=== PATIENT | female | born 1950 | race Caucasian/White ===

== ENCOUNTER 2017-07-09 16:25 | Inpatient (IN) | payer MEDICARE ==
[2017-07-09] VITALS (8 sets, daily range): BP systolic 119–151; BP diastolic 65–87; PULSE 81–103; RESP 16; TEMP 99; O2SAT 93–100
[~2017-07-09] VITALS: Ht 162.6 cm; Wt 48.7 kg
[2017-07-09] MEDS: FLUCONAZOLE 400 MG PREMIX BAG 200 ML IV SCH (00:22)
[2017-07-09] MEDS: PANTOPRAZOLE INJ 80 MG in SODIUM CHLORIDE 0.9% INJ 100 ML IV SCH (00:22)
[~2017-07-09 16:25] MED LIST: CLIN1CAP5 PO; DEXAMETHASONE SOD PHOS 4 MG/ML VIAL IV ONE; LIDOCAINE HCL 1% PF 5 ML AMPULE OTHER ONE; MIDAZOLAM HCL 2 MG/2 ML VIAL IV ONE; ONDANSETRON HCL 4 MG/2 ML VIAL IV PUSH ONE; PHENYLEPH/NS 1000 MCG/10 ML SYR IV ONE; PROPOFOL 200 MG/20 ML AMP IV ONE; ROCURONIUM INJ 50 MG/5 ML SYRINGE IV PUSH ONE; SODI1 PO; SUCCINYLCHOLINE CHLORIDE 100 MG/5 ML SYRINGE IV PUSH ONE; ULTR50TA; ceFAZolin INJ 1,000 MG VIAL IV ONE
[2017-07-09] MEDS ORDERED: ONDANSETRON HCL 4 MG/2 ML VIAL IVP ONE (16:45)
--- NOTE | 2017-07-09 16:48 | PD ---
HPI Chief Complaint: abdominal pain Time Seen by Provider: 16:41 Travel History International Travel<30 days: No Contact w/Intl Traveler<30days: No Traveled to known affect area: No History of Present Illness HPI The patient was seen and examined in the presence of the nurse. Patient complains of abdominal pain. Duration 2 hours. Pain is severe. Location is epigastrium. No alleviating factors. No exacerbating factors. She has history of lung cancer and has completed chemoradiation. She denies metastatic spread. Denies abdominal surgeries or abdominal problems. Denies alcohol abuse. PFSH Past Medical History Arthritis: Yes Cancer: Yes (SCC , BCC SKIN, MELANOMA) Cardiovascular Problems: No COPD: Yes Diabetes: No Endocrine: No Genitourinary: No Hepatitis: No Hiatal Hernia: No Immune Disorder: No Musculoskeletal: Yes (OA) Neurologic: No Psychiatric: No Reproductive: No Respiratory: No Immunizations Current: No Thyroid Disease: No Past Surgical History AICD: No Gynecologic Surgery: Yes (UTERINE ABLATION, ) Joint Replacement: Yes (LEFT HIP right hip) Oral Surgery: Yes (TONSILLECTOMY) Pacemaker: No Thoracic Surgery: Yes (BREAST BX RIGHT) Social History Alcohol Use: No Tobacco Use: No Substance Use: No Allergies-Medications (Allergen,Severity, Reaction): Coded Allergies: penicillin G (Unverified Allergy, Severe, SWELLING, HIVES, 07/09/17) bacitracin (Verified Allergy, Intermediate, rash, 07/09/17) polymyxin B (Verified Allergy, Intermediate, rash, 07/09/17) Reported Meds & Prescriptions Reported Meds & Active Scripts Active Reported Clindamycin Hcl (Clindamycin HCl) 150 Mg Cap 150 Mg PO ONCE Sodium Chloride 1000 Mg Tab (Sodium Chloride) 1 Gm Tab 1 Gm PO DAILY Ultram (Tramadol HCl) 50 Mg Tab 50 Mg .ROUTE Q4H PRN Review of Systems General / Constitutional: No: Fever Eyes: No: Visual changes HENT: No: Headaches Cardiovascular: No: Chest Pain or Discomfort Respiratory: No: Shortness of Breath Gastrointestinal: Positive: Nausea, Abdominal Pain Genitourinary: No: Dysuria Musculoskeletal: No: Pain Skin: No Rash Neurologic: No: Weakness Psychiatric: No: Depression Endocrine: No: Polydipsia Hematologic/Lymphatic: No: Easy Bruising Physical Exam Narrative GENERAL: Well-nourished, well-developed patient with epigastric pain . SKIN: Focused skin assessment reveals no rash and nodules. Skin is Warm and dry. HEAD: Atraumatic. Normocephalic. EYES: Pupils equal and round. No scleral icterus. No injection or drainage. ENT: No nasal bleeding or discharge. Mucous membranes pink and moist. NECK: Trachea midline. No JVD. CARDIOVASCULAR: Regular rate and rhythm. No murmur appreciated. RESPIRATORY: No accessory muscle use. Clear to auscultation. Breath sounds equal bilaterally. GASTROINTESTINAL: Abdomen soft, epigastrium is tender without rebound or guarding, nondistended. Hepatic and splenic margins not palpable. MUSCULOSKELETAL: No obvious deformities. No clubbing. No cyanosis. No edema. NEUROLOGICAL: Awake and alert. No obvious cranial nerve deficits. Motor grossly within normal limits. Normal speech. PSYCHIATRIC: Appropriate mood and affect; insight and judgment normal. Data Data Last Documented VS Vital Signs Date Time Temp Pulse Resp B/P (MAP) Pulse Ox O2 Delivery O2 Flow Rate FiO2 07/09/17 18:30 103 16 121/72 (88) 93 Room Air 07/09/17 16:52 99.0 Orders Orders Complete Blood Count With Diff (07/09/17 16:44) Comprehensive Metabolic Panel (07/09/17 16:44) Lipase (07/09/17 16:44) Prothrombin Time / Inr (Pt) (07/09/17 16:44) Act Partial Throm Time (Ptt) (07/09/17 16:44) Ct Abd/Pel W Iv Contrast(Rout) (07/09/17 16:44) Iv Access Insert/Monitor (07/09/17 16:44) NPO (07/09/17 16:44) Ondansetron Inj (Zofran Inj) (07/09/17 16:45) Sodium Chloride 0.9% Flush (Ns Flush) (07/09/17 16:45) Iohexol 350 Inj (Omnipaque 350 Inj) (07/09/17 18:06) Metronidazole 500 Mg Inj (Flagyl 500 Mg (07/09/17 18:45) Levofloxacin 750 Mg Premix Inj (Levaquin (07/09/17 18:45) Sodium Chlor 0.9% 1000 Ml Inj (Ns 1000 M (07/09/17 18:45) Admit Order (Ed Use Only) (07/09/17 18:57) Labs Laboratory Tests Test 07/09/17 17:10 White Blood Count 12.1 TH/MM3 Red Blood Count 4.65 MIL/MM3 Hemoglobin 15.4 GM/DL Hematocrit 44.9 % Mean Corpuscular Volume 96.5 FL Mean Corpuscular Hemoglobin 33.0 PG Mean Corpuscular Hemoglobin Concent 34.2 % Red Cell Distribution Width 13.9 % Platelet Count 275 TH/MM3 Mean Platelet Volume 7.4 FL Neutrophils (%) (Auto) 90.2 % Lymphocytes (%) (Auto) 5.9 % Monocytes (%) (Auto) 2.1 % Eosinophils (%) (Auto) 0.2 % Basophils (%) (Auto) 1.6 % Neutrophils # (Auto) 10.9 TH/MM3 Lymphocytes # (Auto) 0.7 TH/MM3 Monocytes # (Auto) 0.3 TH/MM3 Eosinophils # (Auto) 0.0 TH/MM3 Basophils # (Auto) 0.2 TH/MM3 CBC Comment DIFF FINAL Differential Comment Prothrombin Time 11.5 SEC Prothromb Time International Ratio 1.0 RATIO Activated Partial Thromboplast Time 29.1 SEC Blood Urea Nitrogen 9 MG/DL Creatinine 0.48 MG/DL Random Glucose 93 MG/DL Total Protein 7.8 GM/DL Albumin 3.5 GM/DL Calcium Level 9.2 MG/DL Alkaline Phosphatase 196 U/L Aspartate Amino Transf (AST/SGOT) 150 U/L Alanine Aminotransferase (ALT/SGPT) 100 U/L Total Bilirubin 0.8 MG/DL Sodium Level 130 MEQ/L Potassium Level 3.9 MEQ/L Chloride Level 96 MEQ/L Carbon Dioxide Level 23.3 MEQ/L Anion Gap 11 MEQ/L Estimat Glomerular Filtration Rate 129 ML/MIN Lipase 129 U/L [facility] Medical Decision Making Medical Screen Exam Complete: Yes Emergency Medical Condition: Yes Medical Record Reviewed: Yes Differential Diagnosis Differential diagnosis includes pancreatitis, biliary colic, hepatitis, GERD, peptic ulcer disease. Narrative Course I have reviewed the patient's electronic medical record. IV placed CBC shows mild leukocytosis metabolic profile shows mild hyponatremia LFT's shows mild LFT elevation lipase is normal I gave her IV Zofran I offered but she refuses pain medication CT of abdomen and pelvis with IV contrast shows suspicion of perforated bowel. sHe has free intraperitoneal fluid and pneumoperitoneum. Also incidental finding of liver metastases noted Case reviewed in detail with general surgeon Patrick france and primary physician Dr. Novoa. She will be emergently sent to [facility] for exploratory laparotomy to evaluate for perforated bowel I gave her IV fluid normal saline 1 L and a dose of both Levaquin and Flagyl Critical Care Narrative Aggregate critical care time was 34 minutes. Time to perform other separately billable procedures was not included in the critical care time. My time did not include minutes spent treating any other patients simultaneously or on activities that did not directly contribute to the patient's treatment. The services I provided to this patient were to treat and/or prevent clinically significant deterioration that could result in: Cardiopulmonary arrest, necrotic bowel, sepsis I provided critical care services requiring my management, as noted below: Chart data review, documentation time, medication orders and management, vital sign assessments/reviewing monitor data, ordering and reviewing lab tests, ordering and interpreting/reviewing x-rays and diagnostic studies, care of the patient and discussion of the patient with the admitting physicians. Diagnosis Primary Impression: Bowel perforation Admitting Information Admitting Physician Requests: Admit Phillip Nicole MD Jul 09, 2017 16:48
[2017-07-09] MEDS: SODIUM CHLORIDE 0.9% FLUSH 10 ML FLUSH IV FLUSH PRN ×4 (17:16→19:50)
[2017-07-09 17:22] LABS: AUTOMATED NEUTROPHIL # 10.9 TH/MM3 (1.8-7.7); BASOPHIL # 0.2 TH/MM3 (0-0.2); BASOPHIL % 1.6 % (0.0-2.0); EOSINOPHIL % 0.2 % (0.0-4.0); HEMATOCRIT 44.9 % (35.0-46.0); LYMPH % 5.9 % (9.0-44.0); LYMPHOCYTE # 0.7 TH/MM3 (1.0-4.8); MEAN CELL VOLUME 96.5 FL (80.0-100.0); MEAN CORPUSCULAR HGB CONC 34.2 % (32.0-36.0); MONO % 2.1 % (0.0-8.0); NEUT % 90.2 % (16.0-70.0); PLATELET COUNT 275 TH/MM3 (150-450); RED BLOOD COUNT 4.65 MIL/MM3 (4.00-5.30); RED CELL DISTRIBUTION WIDTH 13.9 % (11.6-17.2); WHITE BLOOD COUNT 12.1 TH/MM3 (4.0-11.0)
[2017-07-09 17:30] LABS: CHLORIDE 96 MEQ/L (98-107); HEMO FLAGS DIFF FINAL; POTASSIUM 3.9 MEQ/L (3.5-5.1); SODIUM (NA) 130 MEQ/L (136-145)
[2017-07-09 17:34] LABS: ANION GAP 11 MEQ/L (5-15); APTT (PATIENT) 29.1 SEC (24.3-30.1); BICARBONATE 23.3 MEQ/L (21.0-32.0); BLOOD UREA NITROGEN 9 MG/DL (7-18); PROTHROMBIN TIME - PATIENT 11.5 SEC (9.8-11.6)
[2017-07-09 17:37] LABS: ALT (GPT) 100 U/L (10-53); AST (GOT) 150 U/L (15-37); GLOMERULAR FILTRATION RATE 129 ML/MIN (>89)
[2017-07-09 17:38] LABS: TOTAL BILIRUBIN ADULT 0.8 MG/DL (0.2-1.0)
[2017-07-09 17:40] LABS: ALKALINE PHOSPHATASE 196 U/L (45-117)
[2017-07-09] MEDS ORDERED: IOHEXOL 350 MG/ML 10 ML VIAL (for RAD DIAG) IVCONTRAST ONE (18:06)
--- NOTE | 2017-07-09 18:24 | RADRPT ---
EXAM DATE/TIME: 07/09/2017 18:01 [facility] COMPARISON: No previous studies available for comparison. INDICATIONS : Diffuse abdominal pain. IV CONTRAST: 95 cc Omnipaque 350 (iohexol) IV ORAL CONTRAST: No oral contrast ingested. RADIATION DOSE: 5.58 CTDIvol (mGy) MEDICAL HISTORY : Chronic obstructive pulmonary disease. Carcinoma, lung. SURGICAL HISTORY : Uterine ablation. Orthopedic surgery. ENCOUNTER: Initial ACUITY: 1 day PAIN SCALE: 7/10 LOCATION: Bilateral abdomen TECHNIQUE: Volumetric scanning of the abdomen and pelvis was performed. Using automated exposure control and ad justment of the mA and/or kV according to patient size, radiation dose was kept as low as reasonably achievable to obtain optimal diagnostic quality images. DICOM format image data is available electro nically for review and comparison. FINDINGS: LOWER LUNGS: Minimal atelectasis in the posterior lung bases. LIVER: Multiple peripherally enhancing low density liver lesions involving both lobes of the liver. Number g reater than 20. Largest several approach 2 cm in size and CT-guided biopsy does appear likely feasibl e SPLEEN: Normal size without lesion. PANCREAS: Within normal limits. KIDNEYS: Left renal cysts. No evidence of hydronephrosis. ADRENAL GLANDS: Within normal limits. VASCULAR: There is no aortic aneurysm. BOWEL/MESENTERY: There is pneumoperitoneum, mainly in the upper abdomen. Mild nonspecific distention of small bowel. F inding to suggest site of potential bowel perforation is not evident. Small volume of peritoneal flui d. ABDOMINAL WALL: Within normal limits. RETROPERITONEUM: There is no lymphadenopathy. BLADDER: No wall thickening or mass. REPRODUCTIVE: Atrophic uterus. Fluid in the endometrial cavity gonadal varices, particularly on the left INGUINAL: There is no lymphadenopathy or hernia. MUSCULOSKELETAL: Degenerative changes. Bilateral total hip arthroplasties. CONCLUSION: Pneumoperitoneum and free peritoneal fluid worrisome for bowel perforation. Multiple low density live r lesions consistent with metastatic disease. Galileo Macedo MD on July 09, 2017 at 18:14 Board Certified Radiologist. This report was verified electronically.
[2017-07-09] MEDS ORDERED: metroNIDAZOLE 500 MG INJ 100 ML IV ONE (18:45)
[2017-07-09] MEDS ORDERED: SODIUM CHLOR 0.9% 1000 ML INJ 1,000 ML IV ONE (18:45)
[2017-07-09] MEDS ORDERED: LEVOFLOXACIN 750 MG PREMIX INJ 150 ML IV ONE (18:45)
[2017-07-09] MEDS ORDERED: MORPHINE SULFATE 4 MG/ML INJ IV PUSH ONE (19:45)
[2017-07-09] MEDS ORDERED: NALOXONE HCL 0.4 MG/ML AMP IV PUSH PRN ×2 (20:00→23:00)
[2017-07-09] MEDS ORDERED: ONDANSETRON HCL 4 MG/2 ML VIAL IVP PRN (20:00)
[2017-07-09] MEDS ORDERED: SODIUM CHLORIDE 0.9% FLUSH 10 ML FLUSH IV FLUSH PRN (20:00)
[2017-07-09] MEDS ORDERED: SODIUM CHLORIDE 0.9% FLUSH 10 ML FLUSH IV FLUSH SCH (21:00)
[2017-07-09] MEDS ORDERED: MORPHINE SULFATE 8 MG/ML INJ ONE (21:17)
[2017-07-09] MEDS ORDERED: BUPIVACAINE/EPINEPHRINE 0.25% 50 ML VIAL ONE (21:28)
[2017-07-09] MEDS ORDERED: MORPHINE SULFATE 8 MG/ML INJ IV PUSH ONE (21:30)
[2017-07-09] MEDS ORDERED: POVIDONE IODINE 5% (ANTISEPSIS KIT) 4 APPLICATIONS EACH NARE PRN (21:45)
[2017-07-09] MEDS ORDERED: CHLORHEXIDINE GLUCONATE 2 % 1 PACK (2 CLOTHS) TOPICAL PRN (21:45)
[2017-07-09] MEDS ORDERED: INSULIN HUMAN REGULAR 1,000 UNITS/10 ML VIAL SQ PRN (21:45)
[2017-07-09] MEDS ORDERED: METOPROLOL TARTRATE 25 MG TAB PO PRN (21:45)
[2017-07-09] MEDS ORDERED: LACTATED RINGER'S 1000 ML IV PRN (21:45)
[2017-07-09] MEDS ORDERED: SODIUM CHLORID 0.9% 500 ML IV PRN (21:45)
[2017-07-09] MEDS: D5-NS + KCL 20 MEQ INJ 1,000 ML IV SCH (22:49)
[2017-07-09] MEDS ORDERED: ONDANSETRON HCL 4 MG/2 ML VIAL IV PUSH PRN (23:00)
[2017-07-09] MEDS ORDERED: PROPOFOL 1000 MG/100 ML INJ 100 ML ONE (23:00)
[2017-07-09] MEDS ORDERED: diphenhydrAMINE HCL 50 MG/ML VIAL IV PUSH PRN (23:00)
[2017-07-09] MEDS ORDERED: Post-op Orders (for Pharmacy) MISC XX ONE (23:00)
[2017-07-09] MEDS ORDERED: SODIUM CHLORIDE 0.9% FLUSH 5 ML FLUSH IVF PRN (23:00)
[2017-07-09] MEDS ORDERED: MORPHINE SULFATE 30 MG/30 ML PCA IV SCH (23:00)
[2017-07-09] MEDS ORDERED: DO NOT ADM ANY ANTICOAGULANT DRUGS PRN (23:15)
--- NOTE | 2017-07-09 23:23 | PD.CONS ---
HPI Service Critical Care Medicine Consult Requested By Primary Care Physician No Primary Care Physician History of Present Illness 66-year-old female with history of stage IV lung cancer, completed a treatment, presents with complains of abdominal pain. The pain started about 2 hours prior admission was severe and located in epigastrium. No alleviating factors. No exacerbating factors. She denies metastatic spread. Denies abdominal surgeries or abdominal problems. Denies alcohol abuse. CAT scan of the abdomen and pelvis performed in the emergency department significant for pneumoperitoneum, mainly in the upper abdomen. Mild nonspecific distention of small bowel. She was taken emergently to the operating room, and was treated with Edvin patch. Review of Systems ROS Unobtainable patient is sedated and intubated Past Family Social History Allergies: Coded Allergies: penicillin G (Unverified Allergy, Severe, SWELLING, HIVES, 07/09/17) bacitracin (Verified Allergy, Intermediate, rash, 07/09/17) polymyxin B (Verified Allergy, Intermediate, rash, 07/09/17) Past Medical History Arthritis: Yes Cancer: Yes (SCC , BCC SKIN, MELANOMA) COPD: Yes Musculoskeletal: Yes (OA) Past Surgical History Gynecologic Surgery: Yes (UTERINE ABLATION, ) Joint Replacement: Yes (LEFT HIP right hip) Oral Surgery: Yes (TONSILLECTOMY) Thoracic Surgery: Yes (BREAST BX RIGHT) Reported Medications Reported Meds & Active Scripts Active Reported Clindamycin Hcl (Clindamycin HCl) 150 Mg Cap 150 Mg PO ONCE Sodium Chloride 1000 Mg Tab (Sodium Chloride) 1 Gm Tab 1 Gm PO DAILY Ultram (Tramadol HCl) 50 Mg Tab 50 Mg .ROUTE Q4H PRN Active Ordered Medications Current Medications Medications (Trade) Dose Ordered Sig/Salvatore Route PRN Reason Start Time Stop Time Status Last Admin Dose Admin Potassium Chloride/Dextrose/ Sod Cl 1,000 ml @ 125 mls/hr Q8H IV 07/09/17 22:49 07/09/17 22:49 IV Flush (NS Flush) 2 ml UNSCH PRN IVF FLUSH AFTER USING IV ACCESS 07/09/17 23:00 IV Flush (NS Flush) 2 ml BID IVF 07/10/17 09:00 Ondansetron HCl (Zofran Inj) 4 mg Q4H PRN IV PUSH NAUSEA OR VOMITING 07/09/17 23:00 Metronidazole 100 ml @ 200 mls/hr Q8H IV 07/10/17 04:00 07/10/17 20:29 07/10/17 03:49 Naloxone HCl (Narcan Inj) 0.4 mg UNSCH PRN IV PUSH RESPIRATORY RATE LESS THAN 10 07/09/17 23:00 Diphenhydramine HCl (Benadryl Inj) 25 mg Q6H PRN IV PUSH ITCHING 07/09/17 23:00 Morphine Sulfate (Morphine 1 Mg/ ml [employer]IST) 30 mg UNSCH IV 07/09/17 23:00 [employer] Dosage Infused (Pha) 1 Q8HR .XX 07/10/17 06:00 Levofloxacin/ Dextrose 100 ml @ 100 mls/hr Q24H IV 07/10/17 18:00 Fluconazole/ Sodium Chloride 200 ml @ 100 mls/hr Q24H IV 07/09/17 23:00 07/09/17 00:22 Pantoprazole Sodium 80 mg/ Sodium Chloride 100 ml @ 10 mls/hr Q10H IV 07/09/17 23:00 07/09/17 00:22 Miscellaneous Information ALL NURSING DEPARTME... UNSCH PRN .XX SEE LABEL COMMENTS 07/09/17 23:15 07/10/17 23:14 Propofol 100 ml @ 1.53 mls/hr TITRATE PRN IV SEDATION 07/09/17 23:30 07/10/17 03:50 Fentanyl Citrate 250 ml @ 5 mls/hr TITRATE PRN IV SEDATION 07/09/17 23:45 07/10/17 00:30 Family History No family history significant for diabetes or coronary disease Social History Alcohol Use: No Tobacco Use: No Substance Use: No Physical Exam Vital Signs Vital Signs Date Time Temp Pulse Resp B/P (MAP) Pulse Ox O2 Delivery O2 Flow Rate FiO2 07/09/17 22:57 98 40 07/09/17 21:30 82 26 108/59 (75) 94 07/09/17 21:15 88 28 114/65 (81) 92 07/09/17 21:00 81 28 118/64 (82) 92 07/09/17 20:45 85 27 105/58 (74) 93 07/09/17 20:40 81 07/09/17 20:40 98.1 86 24 105/63 (77) 91 07/09/17 20:40 91 Nasal Cannula 3 07/09/17 19:54 88 16 123/65 (84) 94 07/09/17 19:00 94 16 151/74 (99) 93 Room Air 07/09/17 18:30 103 16 121/72 (88) 93 Room Air 07/09/17 17:30 100 16 119/81 (94) 93 Room Air 07/09/17 16:55 16 07/09/17 16:52 99.0 81 16 139/87 (104) 94 Physical Exam GENERAL: Well-nourished, well-developed patient. Sedated and intubated SKIN: Warm and dry. HEAD: Normocephalic. EYES: No scleral icterus. No injection or drainage. NECK: Supple, trachea midline. No JVD or lymphadenopathy. CARDIOVASCULAR: Regular rate and rhythm without murmurs, gallops, or rubs. RESPIRATORY: Breath sounds equal bilaterally. No accessory muscle use. GASTROINTESTINAL: Abdomen soft, non-tender, nondistended. MUSCULOSKELETAL: No cyanosis, or edema. BACK: Nontender without obvious deformity. NEURO EXAM: Mental Status: The patient is sedated and intubated Cranial Nerves: Pupils are round, reactive to light. Reflexes: Biceps, patellar, and Achilles are 2/4 bilaterally. No clonus. Laboratory Laboratory Tests Test 07/09/17 17:10 White Blood Count 12.1 Red Blood Count 4.65 Hemoglobin 15.4 Hematocrit 44.9 Mean Corpuscular Volume 96.5 Mean Corpuscular Hemoglobin 33.0 Mean Corpuscular Hemoglobin Concent 34.2 Red Cell Distribution Width 13.9 Platelet Count 275 Mean Platelet Volume 7.4 Neutrophils (%) (Auto) 90.2 Lymphocytes (%) (Auto) 5.9 Monocytes (%) (Auto) 2.1 Eosinophils (%) (Auto) 0.2 Basophils (%) (Auto) 1.6 Neutrophils # (Auto) 10.9 Lymphocytes # (Auto) 0.7 Monocytes # (Auto) 0.3 Eosinophils # (Auto) 0.0 Basophils # (Auto) 0.2 CBC Comment DIFF FINAL Differential Comment Prothrombin Time 11.5 Prothromb Time International Ratio 1.0 Activated Partial Thromboplast Time 29.1 Blood Urea Nitrogen 9 Creatinine 0.48 Random Glucose 93 Total Protein 7.8 Albumin 3.5 Calcium Level 9.2 Alkaline Phosphatase 196 Aspartate Amino Transf (AST/SGOT) 150 Alanine Aminotransferase (ALT/SGPT) 100 Total Bilirubin 0.8 Sodium Level 130 Potassium Level 3.9 Chloride Level 96 Carbon Dioxide Level 23.3 Anion Gap 11 Estimat Glomerular Filtration Rate 129 Lipase 129 Result Diagram: 07/09/17 1710 07/09/17 1710 Imaging Last 24 hours Impressions Chest X-Ray 07/10/17 0000 Signed Impressions: Service Date/Time: Monday, July 10, 2017 01:15 - CONCLUSION: Left basilar atelectasis.. Leon Burns MD Abdomen/Pelvis CT 07/09/17 1644 Signed Impressions: Service Date/Time: Sunday, July 09, 2017 18:01 - CONCLUSION: Pneumoperitoneum and free peritoneal fluid worrisome for bowel perforation. Multiple low density liver lesions consistent with metastatic disease. Galileo Macedo MD Assessment and Plan Assessment and Plan Respiratory failure - Postoperative - Difficult intubation per anesthesiology report, anterior airway - Attempt to wean - SBT a.m. Perforated viscus - Status post Edvin patch repair - Levaquin/Flagyl - Management per general surgery COPD - No exacerbation - No indication for steroids - DuoNeb scheduled and when necessary Stage IV lung cancer - Supportive care - Follow-up as an outpatient with gopherman and oncologist DVT GI prophylaxis - Teds SCDs - Pantoprazole - Pharmacological DVT prophylaxis per surgeon Critical Care: The total critical care time was 35 minutes. Time to perform other separately billable procedures was not included in the critical care time. Stanton Ferrell MD Jul 09, 2017 23:23
[2017-07-09] MEDS ORDERED: fentaNYL DRIP 250 ML IV PRN (23:45)
[2017-07-10] VITALS (17 sets, daily range): BP systolic 93–108; BP diastolic 51–61; PULSE 56–81; RESP 14–20; TEMP 97.7–98.9; O2SAT 92–100
[2017-07-10] MEDS: PROPOFOL 1000 MG/100 ML INJ 100 ML IV PRN ×2 (00:22→03:50)
[2017-07-10 00:44] LABS: BLOOD GAS BASE EXCESS -4.9 mmol/L (-2-2); BLOOD GAS CARBOXYHEMOGLOBIN 2.9 % (0-4); BLOOD GAS HCO3 20 mmol/L (22-26); BLOOD GAS METHEMOGLOBIN 1.1 % (0-2); BLOOD GAS O2 HGB SATURATION 94 % (90-100); BLOOD GAS OXYGEN CONTENT 18.2 Vol % (12.0-20.0); BLOOD GAS PCO2 39 mmHg (38-42); BLOOD GAS PO2 114 mmHg (61-120); BLOOD GAS TOTAL HGB 13.7 G/DL (12.0-16.0); CRITICAL VALUE NO; DRAW SITE LT BRACHIAL; FIO2 40 %; NUMBER OF ARTERIAL PUNCTURES 1; OXYGEN DEVICE VENTILATOR; STAT NO; TEMP CORR TO 98.6; VENT SETTINGS 16/450/IT1.0/5PEEP
--- NOTE | 2017-07-10 02:15 | RADRPT ---
EXAM DATE/TIME: 07/10/2017 01:15 [facility] COMPARISON: No previous studies available for comparison. INDICATIONS : Post intubation. MEDICAL HISTORY : Chronic obstructive pulmonary disease. Carcinoma, lung. SURGICAL HISTORY : None. ENCOUNTER: Initial ACUITY: 1 day PAIN SCORE: Non-responsive. LOCATION: Bilateral chest FINDINGS: A single view of the chest demonstrates left basal atelectasis. Right lung clear. Endotracheal tube 4 cm above the cait. Nasogastric tube tip in stomach. The cardiomediastinal contours are unremarkabl e. Osseous structures are intact. CONCLUSION: Left basilar atelectasis.. Leon Burns MD on July 10, 2017 at 2:13 Board Certified Radiologist. This report was verified electronically.
[2017-07-10] MEDS: metroNIDAZOLE 500 MG INJ 100 ML IV SCH ×3 (03:49→21:22)
[2017-07-10] MEDS ORDERED: RESP: ALBUTEROL 2.5 MG/IPRATROPIUM 0.5 MG NEB (PRN) NEB (05:30)
[2017-07-10] MEDS: RESP: ALBUTEROL 2.5 MG/IPRATROPIUM 0.5 MG NEB (SCH) NEB ×4 (05:55→22:00)
[2017-07-10] MEDS: PCA - TOTAL MG MORPHINE DELIVERED PER SHIFT SCH ×3 (06:00→22:00)
[2017-07-10] MEDS: D5-NS + KCL 20 MEQ INJ 1,000 ML IV SCH ×3 (06:49→22:39)
[2017-07-10 07:21] LABS: AUTOMATED NEUTROPHIL # 14.1 TH/MM3 (1.8-7.7); BASOPHIL % 0.1 % (0.0-2.0); HEMATOCRIT 40.3 % (35.0-46.0); HEMO FLAGS DIFF FINAL; LYMPH % 4.7 % (9.0-44.0); LYMPHOCYTE # 0.7 TH/MM3 (1.0-4.8); MEAN CELL VOLUME 101.4 FL (80.0-100.0); MEAN CORPUSCULAR HEMOGLOBIN 34.1 PG (27.0-34.0); MEAN CORPUSCULAR HGB CONC 33.6 % (32.0-36.0); MONO % 2.5 % (0.0-8.0); NEUT % 92.7 % (16.0-70.0); PLATELET COUNT 250 TH/MM3 (150-450); RED BLOOD COUNT 3.97 MIL/MM3 (4.00-5.30); RED CELL DISTRIBUTION WIDTH 14.3 % (11.6-17.2); WHITE BLOOD COUNT 15.2 TH/MM3 (4.0-11.0)
[2017-07-10 07:43] LABS: ALT (GPT) 69 U/L (10-53); ANION GAP 7 MEQ/L (5-15); AST (GOT) 83 U/L (15-37); BICARBONATE 24.1 MEQ/L (21.0-32.0); BLOOD UREA NITROGEN 7 MG/DL (7-18); CHLORIDE 103 MEQ/L (98-107); GLOMERULAR FILTRATION RATE 102 ML/MIN (>89); POTASSIUM 4.4 MEQ/L (3.5-5.1); SODIUM (NA) 134 MEQ/L (136-145)
[2017-07-10 07:45] LABS: ALKALINE PHOSPHATASE 144 U/L (45-117); TOTAL BILIRUBIN ADULT 0.7 MG/DL (0.2-1.0)
--- NOTE | 2017-07-10 07:57 | HHI.CCPN ---
Subjective Remarks/Hospital Course 66-year-old female with history of stage IV lung cancer, completed a treatment, presents with complains of abdominal pain. The pain started about 2 hours prior admission was severe and located in epigastrium. No alleviating factors. No exacerbating factors. She denies metastatic spread. Denies abdominal surgeries or abdominal problems. Denies alcohol abuse. CAT scan of the abdomen and pelvis performed in the emergency department significant for pneumoperitoneum, mainly in the upper abdomen. Mild nonspecific distention of small bowel. She was taken emergently to the operating room, and was treated with Edvin patch. 07/10: Awake, alert, follows commands shortly after operative closure of perforated peptic ulcer. Will perform extubation parameters. Objective Vital Signs Date Time Temp Pulse Resp B/P (MAP) Pulse Ox O2 Delivery O2 Flow Rate FiO2 07/10/17 07:00 94 Nasal Cannula 3.00 07/10/17 06:50 40 07/10/17 06:00 56 07/10/17 04:00 98.4 16 93/59 (70) Intake and Output 07/10/17 07/10/17 07/11/17 08:00 16:00 00:00 Intake Total 1430 ml Output Total 640 ml Balance 790 ml Result Diagram: 07/10/17 0525 07/10/17 0525 Other Results Laboratory Tests Test 07/10/17 00:25 Blood Gas Puncture Site LT BRACHIAL Blood Gas Patient Temperature 98.6 Blood Gas HCO3 20 mmol/L (22-26) Blood Gas Base Excess -4.9 mmol/L (-2-2) Blood Gas Oxygen Saturation 94 % (90-100) Arterial Blood pH 7.33 (7.380-7.420) Arterial Blood Partial Pressure CO2 39 mmHg (38-42) Arterial Blood Partial Pressure O2 114 mmHg (61-120) Arterial Blood Oxygen Content 18.2 Vol % (12.0-20.0) Arterial Blood Carboxyhemoglobin 2.9 % (0-4) Arterial Blood Methemoglobin 1.1 % (0-2) Blood Gas Hemoglobin 13.7 G/DL (12.0-16.0) Oxygen Delivery Device VENTILATOR Blood Gas Ventilator Setting 16/450/IT1.0/5PEEP Blood Gas Inspired Oxygen 40 % Imaging Last 24 hours Impressions Chest X-Ray 07/10/17 0000 Signed Impressions: Service Date/Time: Monday, July 10, 2017 01:15 - CONCLUSION: Left basilar atelectasis.. Leon Burns MD Abdomen/Pelvis CT 07/09/17 1644 Signed Impressions: Service Date/Time: Sunday, July 09, 2017 18:01 - CONCLUSION: Pneumoperitoneum and free peritoneal fluid worrisome for bowel perforation. Multiple low density liver lesions consistent with metastatic disease. Galileo Macedo MD Objective Remarks GENERAL: Well-nourished, well-developed patient. Lightly sedated and intubated SKIN: Warm and dry. HEAD: Normocephalic EYES: No scleral icterus. No injection or drainage. NECK: Supple, trachea midline. Orally intubated. CARDIOVASCULAR: Regular rate and rhythm without murmurs, gallops, or rubs. RESPIRATORY: Breath sounds equal bilaterally. No accessory muscle use. GASTROINTESTINAL: Abdomen soft, non-tender, nondistended. Quiet, post-surgical. MUSCULOSKELETAL: No cyanosis, or edema. Well perfused. BACK: Nontender without obvious deformity. NEURO EXAM: Alert, follows commands. Moves 4 limbs. A/P Assessment and Plan Respiratory failure - Postoperative - Difficult intubation per anesthesiology report, anterior airway - Attempt to wean - SBT -> extubate. Perforated viscus - Status post Edvin patch repair - Levaquin/Flagyl - Management per general surgery COPD - No exacerbation - No indication for steroids - DuoNeb scheduled and when necessary Stage IV lung cancer (T4 adenocarcinoma located posteriorly adjacent to mediastinum right side with vertebral body/chest wall extension). 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 Will extubate. Castro Saini MD Jul 10, 2017 07:57
--- NOTE | 2017-07-10 09:18 | HHI.PR ---
Subjective Subjective Notes feeling better today, pain controlled with meds Objective Vitals/I&O Vital Signs Date Time Temp Pulse Resp B/P (MAP) Pulse Ox O2 Delivery O2 Flow Rate FiO2 07/10/17 09:04 96 Nasal Cannula 2.00 07/10/17 06:50 40 07/10/17 06:00 56 07/10/17 04:00 98.4 16 93/59 (70) Labs Laboratory Tests Test 07/09/17 17:10 07/10/17 00:25 07/10/17 05:02 07/10/17 05:25 White Blood Count 12.1 15.2 Red Blood Count 4.65 3.97 Hemoglobin 15.4 13.5 Hematocrit 44.9 40.3 Mean Corpuscular Volume 96.5 101.4 Mean Corpuscular Hemoglobin 33.0 34.1 Mean Corpuscular Hemoglobin Concent 34.2 33.6 Red Cell Distribution Width 13.9 14.3 Platelet Count 275 250 Mean Platelet Volume 7.4 8.1 Neutrophils (%) (Auto) 90.2 92.7 Lymphocytes (%) (Auto) 5.9 4.7 Monocytes (%) (Auto) 2.1 2.5 Eosinophils (%) (Auto) 0.2 0.0 Basophils (%) (Auto) 1.6 0.1 Neutrophils # (Auto) 10.9 14.1 Lymphocytes # (Auto) 0.7 0.7 Monocytes # (Auto) 0.3 0.4 Eosinophils # (Auto) 0.0 0.0 Basophils # (Auto) 0.2 0.0 CBC Comment DIFF FINAL DIFF FINAL Differential Comment Prothrombin Time 11.5 Prothromb Time International Ratio 1.0 Activated Partial Thromboplast Time 29.1 Blood Urea Nitrogen 9 7 Creatinine 0.48 0.59 Random Glucose 93 247 Total Protein 7.8 6.4 Albumin 3.5 2.6 Calcium Level 9.2 7.9 Alkaline Phosphatase 196 144 Aspartate Amino Transf (AST/SGOT) 150 83 Alanine Aminotransferase (ALT/SGPT) 100 69 Total Bilirubin 0.8 0.7 Sodium Level 130 134 Potassium Level 3.9 4.4 Chloride Level 96 103 Carbon Dioxide Level 23.3 24.1 Anion Gap 11 7 Estimat Glomerular Filtration Rate 129 102 Lipase 129 Blood Gas Puncture Site LT BRACHIAL Blood Gas Patient Temperature 98.6 Blood Gas HCO3 20 Blood Gas Base Excess -4.9 Blood Gas Oxygen Saturation 94 Arterial Blood pH 7.33 Arterial Blood Partial Pressure CO2 39 Arterial Blood Partial Pressure O2 114 Arterial Blood Oxygen Content 18.2 Arterial Blood Carboxyhemoglobin 2.9 Arterial Blood Methemoglobin 1.1 Blood Gas Hemoglobin 13.7 Oxygen Delivery Device VENTILATOR Blood Gas Ventilator Setting 16/450/IT1.0/5PEEP Blood Gas Inspired Oxygen 40 Nasal Screen MRSA (PCR) MRSA NOT DETECTED Cardiovascular: Regular Lungs: Clear Abdomen: Non-distended, Post-op tenderness Wound Wound : Wound Location: Abdomen Appearance: Clean & Dry A/P Assessment and Plan POD1 perf ulcer oob ok for ice and popcicles abx and anti-fungals await path Patrick Núñez MD Jul 10, 2017 09:18
[2017-07-10] MEDS: PANTOPRAZOLE INJ 80 MG in SODIUM CHLORIDE 0.9% INJ 100 ML IV SCH ×2 (09:45→18:52)
[2017-07-10] MEDS: SODIUM CHLORIDE 0.9% FLUSH 5 ML FLUSH IVF SCH ×2 (09:45→21:00)
--- NOTE | 2017-07-10 10:14 | MB ---
cc: LINDSAY PENDLETON M.D. DATE OF CONSULTATION: 07/09/2017 REASON FOR CONSULTATION: Perforated bowel. HISTORY OF PRESENT ILLNESS: Miss Madden is an unfortunate 66-year-old female who has metastatic lung cancer who presented to the [place] emergency department with severe upper abdominal pain. She states it started about 2 hours before admission. She rated the pain a 10/10. Pain was mainly in the epigastric area. She denies any previous problems with abdominal pain. She denies any ulcer history. She denies any reflux. She denies taking any sort of NSAIDs recently. She has undergone chemo radiation therapy for lung cancer. She was seen and evaluated by Dr. Iqbal, Dr. Iqbal sent her for a CT scan of pelvis which demonstrated pneumoperitoneum. A STAT surgical consult was requested. The patient was originally at [facility]. Due to her medical complexity and the unknown etiology of her perforated bowel. I recommend she should be brought to [facility] immediately. PAST MEDICAL HISTORY Hypothyroidism Melanoma Squamous cell and basal cell carcinomas. PAST SURGICAL HISTORY 1. She has had a uterine ablation. 2. She has had bilateral hip replacements 3. Tonsillectomy. 4. Right breast biopsy. MEDICATIONS She states all she takes is Synthroid. ALLERGIES PENICILLIN BACITRACIN POLYMYXIN SOCIAL HISTORY: She is an active smoker. Denies alcohol history. REVIEW OF SYSTEMS The patient reports severe epigastric abdominal pain. She denies nausea, vomiting, fever or chills. She reports a normal bowel movement yesterday. She denies any dysuria. PHYSICAL EXAMINATION VITAL SIGNS: Temperature is 98, pulse is 80, blood pressure is 100/50, respiratory rate 20. IN GENERAL; In general is a thin, fairly elderly appearing female who looks very uncomfortable, holding her abdomen with her legs drawn up. HEAD, EYES, EARS, NOSE, AND THROAT: Pupils equal site. Sclerae are white. Oropharynx is clear and moist. NECK: Neck is supple. No masses. LUNGS: Clear to auscultation bilaterally. HEART: S1, S2, No murmur. ABDOMEN: The abdomen is rigid with peritonitis, rebound and guarding. Bowel sounds are present. No hernias. EXTREMITIES: Free range of motion x4. NEUROLOGIC: She is awake, alert and oriented x3. LABORATORY DATA White blood cell count 12, hemoglobin 15, platelet count is 275. Electrolytes remarkable for hyponatremia at 130, elevated AST 150, ALT 100, alkaline phos 196. INR is 1.0. CT PELVIS Demonstrates hemoperitoneum mainly upper abdomen was free fluid consistent with perforated bowel. She also has multiple liver lesions concerning for metastatic malignancy. IMPRESSION Perforated bowel likely ulcer. PLAN The patient was taken operating room immediately for exploratory laparotomy. Risks and benefits of the suture was discussed and she is agreeable. She understands and emergent procedure and carries significant complication or risk. She is agreeable to proceed. No family is present at this time. She states her son lives in [place] and she asked that [facility]. MD POORNIMA Santos/buster /10:56 PM /9:18 AM
--- NOTE | 2017-07-10 12:18 | MP ---
cc: LINDSAY PENDLETON M.D. DATE OF SURGERY 07/09/2017 PREOPERATIVE DIAGNOSES 1. Perforated bowel. 2. Metastatic lung cancer. POSTOPERATIVE DIAGNOSES 1. Perforated bowel. 2. Metastatic lung cancer. 3. Perforated gastric ulcer midbody. 4. Multiple liver metastases. PROCEDURE PERFORMED 1. Exploratory laparotomy. 2. Over-sew of gastric ulcer with Edvin patch. 3. Excision liver nodule for biopsy. SURGEON Lindsay Pendleton MD [employer] WORK[employer] Duarte Archuleta ANESTHESIA General endotracheal. COMPLICATIONS None. ESTIMATED BLOOD LOSS 50 cc INDICATIONS FOR PROCEDURE Ms. Madden is an unfortunate 66-year-old female who presented to [facility] this afternoon with a 2-hour history of severe upper abdominal pain. She was found have free air. She was brought to [facility] emergently for exploratory laparotomy. She has recently completed chemoradiation treatment for lung cancer. Her preoperative imaging demonstrated multiple liver lesions consistent with metastatic disease. She was offered immediate exploratory laparotomy and she was agreeable. INTRAOPERATIVE FINDINGS The patient had a fairly large ulcer, about 1 cm in diameter in the central portion of the body of the stomach. This was oversewn with 3-0 GI silks. An omental flap was then brought up and placed over the ulcer to reinforce it. A drain was left adjacent to the ulcer repair. The patient was noted to have multiple large, firm liver nodules In the left lobe of the liver, along the edge of liver, there was a nodule that was easily accessible. This was excised with wedge technique using electrocautery Bovie and sent to pathology for analysis. By physical exam these appeared to be metastatic nodules. DETAILS The patient was identified, brought to the operating room, placed supine on the operating room table. After adequate general endotracheal anesthesia was achieved, the abdomen was prepped and draped in standard surgical fashion. Upper midline laparotomy incision was made the from xiphoid to umbilicus. Dissection was carried down through the subcutaneous tissue, through the abdominal fasci, into the peritoneum. Upon initially entering the peritoneum, a small amount of yellowish fluid was identified. Attention was directed to the stomach were immediately we noted a fairly large ulcer in the central portion of the stomach and the body. There was a small piece of omentum adherent to it but the ulcer was freely perforated and draining. The stomach was then grasped and brought down into the surgical wound. An Stevie wound retractor had been placed prior to the dissection. The ulcer was cleaned off circumferentially and then was primarily repair using 3-0 GI silks interrupted x 4. Once this was completed, the repair was inspected and found to be intact without evidence of any leakage or drainage. NG tube was positioned adjacent to the repair by anesthesia and then taped in by anesthesia. Attention was now directed to the omental flap. The transverse colon was identified and the omentum was identified. A tunnel of omentum was then dissected with electrocautery Bovie. The tongue was brought up to the repair and then sutured to the anterior wall of the stomach using 3-0 GI silks. After we did this, the abdomen was rinsed out with approximately 2 liters of warm saline solution. Next, a Magno-Sorenson drain was brought in through a stab wound in the left upper quadrant after anesthetizing the skin and subcutaneous tissue with 0.25% Marcaine. The drain was placed along the greater curvature of the stomach and under the liver. Now attention was directed to the liver mass. There were multiple firm liver masses throughout the liver. There was an easily accessible one in the left lobe of the liver that was right on the liver margin. Electrocautery Bovie was then used to wedge the mass out. Bleeding was minimal. The mass was excised in toto and sent to pathology for analysis. Once this was completed the abdominal cavity was rinsed out one more time with 1 liter of warm saline solution. The drain position was checked and found to be excellent. Omental flap was inspected and found to be intact. Attention was now directed to closure. Closure was accomplished using a #1 looped PDS in continuous running fashion. The subcutaneous tissue was irrigated out and injected with additional local anesthetic and the skin was closed with skin stapling device. The drain was secured with 3-0 nylon. The patient tolerated the procedure well and was awakened and brought to Recovery in stable condition. She will be left intubated due to her sepsis and COPD lung history and the fact that she was a fairly difficult intubation. Anesthesia reports that she was very anterior and they recommended that she not be extubated until she was deemed to be stable from a respiratory standpoint. MD POORNIMA Santos/TAWNY /11:00 PM 12:02 PM
--- NOTE | 2017-07-10 14:54 | EKG ---
Date Performed: 07/09/2017 Time Performed: 20:49:21 PTAGE: 66 years EKG: Sinus rhythm NORMAL ECG NO PREVIOUS TRACING DOCTOR: Joe Guzmán Interpretating Date/Time 07/10/2017 14:52:35
--- NOTE | 2017-07-10 15:27 | HHI.HP ---
History of Present Illness Service Medicine Primary Care Physician Dr. Lewis DO Admission Diagnosis perforated bowel Diagnoses: (1) Bowel perforation (2) Lung cancer History of Present Illness Patient is a 66-year-old female who presented to ER with abdominal pain for 2 hours prior to admission and on CAT scan of the abdomen and pelvis performed was significant for pneumoperitoneum, mainly in the upper abdomen. She was taken emergently to the operating room for exploratory laparotomy, over-sew of gastric ulcer with sanjiv patch and excision liver nodule for biopsy. Patient has past medical history of lung cancer followed by Dr. Brody last chemotherapy per patient over a year ago and OA. Review of Systems Constitutional: COMPLAINS OF: Dizziness, DENIES: Fever Respiratory: DENIES: Sputum production, Shortness of breath Gastrointestinal: COMPLAINS OF: Abdominal pain, DENIES: Constipation, Diarrhea , Nausea, Vomiting Psychiatric: DENIES: Anxiety, Depression, Agitation Past Family Social History Allergies: Coded Allergies: penicillin G (Unverified Allergy, Severe, SWELLING, HIVES, 07/09/17) bacitracin (Verified Allergy, Intermediate, rash, 07/09/17) polymyxin B (Verified Allergy, Intermediate, rash, 07/09/17) Past Medical History Past Family Social History Past Medical History Arthritis: Yes Cancer: Yes (SCC , BCC SKIN, MELANOMA) COPD: Yes Musculoskeletal: Yes (OA) Past Surgical History Past Family Social History Past Surgical History Gynecologic Surgery: Yes (UTERINE ABLATION, ) Joint Replacement: Yes (LEFT HIP right hip) Oral Surgery: Yes (TONSILLECTOMY) Thoracic Surgery: Yes (BREAST BX RIGHT) Active Ordered Medications Current Medications Medications (Trade) Dose Ordered Sig/Salvatore Route Start Time Stop Time Status Last Admin Potassium Chloride/Dextrose/ Sod Cl 1,000 ml @ 125 mls/hr Q8H IV 07/09/17 22:49 07/10/17 06:49 (NS Flush) 2 ml UNSCH PRN IVF 07/09/17 23:00 (NS Flush) 2 ml BID IVF 07/10/17 09:00 07/10/17 09:45 (Zofran Inj) 4 mg Q4H PRN IV PUSH 07/09/17 23:00 Metronidazole 100 ml @ 200 mls/hr Q8H IV 07/10/17 04:00 07/10/17 20:29 07/10/17 12:45 (Narcan Inj) 0.4 mg UNSCH PRN IV PUSH 07/09/17 23:00 (Benadryl Inj) 25 mg Q6H PRN IV PUSH 07/09/17 23:00 (Morphine 1 Mg/ ml LINING IRONER) 30 mg UNSCH IV 07/09/17 23:00 07/10/17 10:42 LINING IRONER Dosage Infused (Pha) 1 Q8HR .XX 07/10/17 06:00 07/10/17 14:00 Levofloxacin/ Dextrose 100 ml @ 100 mls/hr Q24H IV 07/10/17 18:00 Fluconazole/ Sodium Chloride 200 ml @ 100 mls/hr Q24H IV 07/09/17 23:00 07/09/17 00:22 Pantoprazole Sodium 80 mg/ Sodium Chloride 100 ml @ 10 mls/hr Q10H IV 07/09/17 23:00 07/10/17 09:45 Miscellaneous Information ALL NURSING DEPARTME... UNSCH PRN .XX 07/09/17 23:15 07/10/17 23:14 Propofol 100 ml @ 1.53 mls/hr TITRATE PRN IV 07/09/17 23:30 07/10/17 03:50 Fentanyl Citrate 250 ml @ 5 mls/hr TITRATE PRN IV 07/09/17 23:45 07/10/17 00:30 (Duoneb Neb) 1 ampule Q6HR NEB NEB 07/10/17 05:30 07/10/17 09:04 (Duoneb Neb) 1 ampule Q2HR NEB PRN NEB 07/10/17 05:30 (Pneumovax-23 Inj) 25 mcg ONCE ONCE IM 07/11/17 09:00 07/11/17 09:01 Family History Mother diabetes, cardiac disease Father form prostate cancer Social History Quit smoking over 10 years ago ETOH occasionally Lives alone Physical Exam Vital Signs Vital Signs Date Time Temp Pulse Resp B/P (MAP) Pulse Ox O2 Delivery O2 Flow Rate FiO2 07/10/17 14:00 70 07/10/17 14:00 19 07/10/17 12:00 98.2 65 16 104/51 (68) 95 07/10/17 12:00 65 07/10/17 10:42 16 07/10/17 10:00 81 07/10/17 09:04 96 Nasal Cannula 2.00 07/10/17 08:00 97.7 74 16 106/57 (73) 92 07/10/17 08:00 74 07/10/17 07:00 94 Nasal Cannula 3.00 07/10/17 06:51 96 Nasal Cannula 3.00 07/10/17 06:50 98 Nasal Cannula 2 07/10/17 06:50 100 Mechanical Ventilator 40 07/10/17 06:00 56 07/10/17 04:12 100 40 07/10/17 04:00 60 07/10/17 04:00 40 07/10/17 04:00 98.4 60 16 93/59 (70) 100 07/10/17 02:30 98.6 58 16 108/58 (75) 100 07/10/17 02:30 60 07/10/17 02:25 100 40 07/10/17 02:15 100 100 07/10/17 02:00 98.2 65 16 103/58 (73) 100 Mechanical Ventilator 40 07/10/17 01:45 72 17 113/69 (84) 100 Mechanical Ventilator 40 07/10/17 01:30 76 17 122/69 (86) 100 Mechanical Ventilator 40 07/10/17 01:15 89 19 140/73 (95) 100 Mechanical Ventilator 40 07/10/17 01:00 73 16 96/60 (72) 100 Mechanical Ventilator 40 07/10/17 00:45 93 18 143/71 (95) 100 Mechanical Ventilator 40 07/10/17 00:30 96 18 132/79 (96) 100 Mechanical Ventilator 40 07/10/17 00:15 109 18 169/79 (109) 100 Mechanical Ventilator 40 07/10/17 00:00 109 18 174/89 (117) 100 Mechanical Ventilator 40 07/09/17 23:45 80 16 112/66 (81) 100 Mechanical Ventilator 40 07/09/17 23:30 102 16 149/77 (101) 100 Mechanical Ventilator 40 07/09/17 23:24 100 40 07/09/17 23:15 86 16 141/78 (99) 99 Mechanical Ventilator 40 07/09/17 23:00 40 07/09/17 22:57 98.4 102 16 162/76 (104) 100 Ambu Bag 10 07/09/17 22:57 98 40 07/09/17 22:57 102 07/09/17 21:30 82 26 108/59 (75) 94 07/09/17 21:15 88 28 114/65 (81) 92 07/09/17 21:00 81 28 118/64 (82) 92 07/09/17 20:45 85 27 105/58 (74) 93 07/09/17 20:40 81 07/09/17 20:40 98.1 86 24 105/63 (77) 91 07/09/17 20:40 91 Nasal Cannula 3 07/09/17 19:54 88 16 123/65 (84) 94 07/09/17 19:00 94 16 151/74 (99) 93 Room Air 07/09/17 18:30 103 16 121/72 (88) 93 Room Air 07/09/17 17:30 100 16 119/81 (94) 93 Room Air 07/09/17 16:55 16 07/09/17 16:52 99.0 81 16 139/87 (104) 94 Physical Exam GENERAL: Well-nourished, well-developed patient. NG tube present SKIN: Warm and dry. HEAD: Normocephalic EYES: No scleral icterus. No injection or drainage. NECK: Supple, trachea midline. Orally intubated. CARDIOVASCULAR: Regular rate and rhythm without murmurs, gallops, or rubs. RESPIRATORY: Breath sounds equal bilaterally. No accessory muscle use. GASTROINTESTINAL: Abdomen soft, non-tender, nondistended. Dressing dry and intact MUSCULOSKELETAL: No cyanosis, or edema. Well perfused. BACK: Nontender without obvious deformity. NEURO EXAM: Alert, follows commands. Moves 4 limbs. Laboratory Laboratory Tests Test 07/09/17 17:10 07/10/17 00:25 07/10/17 05:02 07/10/17 05:25 White Blood Count 12.1 15.2 Red Blood Count 4.65 3.97 Hemoglobin 15.4 13.5 Hematocrit 44.9 40.3 Mean Corpuscular Volume 96.5 101.4 Mean Corpuscular Hemoglobin 33.0 34.1 Mean Corpuscular Hemoglobin Concent 34.2 33.6 Red Cell Distribution Width 13.9 14.3 Platelet Count 275 250 Mean Platelet Volume 7.4 8.1 Neutrophils (%) (Auto) 90.2 92.7 Lymphocytes (%) (Auto) 5.9 4.7 Monocytes (%) (Auto) 2.1 2.5 Eosinophils (%) (Auto) 0.2 0.0 Basophils (%) (Auto) 1.6 0.1 Neutrophils # (Auto) 10.9 14.1 Lymphocytes # (Auto) 0.7 0.7 Monocytes # (Auto) 0.3 0.4 Eosinophils # (Auto) 0.0 0.0 Basophils # (Auto) 0.2 0.0 CBC Comment DIFF FINAL DIFF FINAL Differential Comment Prothrombin Time 11.5 Prothromb Time International Ratio 1.0 Activated Partial Thromboplast Time 29.1 Blood Urea Nitrogen 9 7 Creatinine 0.48 0.59 Random Glucose 93 247 Total Protein 7.8 6.4 Albumin 3.5 2.6 Calcium Level 9.2 7.9 Alkaline Phosphatase 196 144 Aspartate Amino Transf (AST/SGOT) 150 83 Alanine Aminotransferase (ALT/SGPT) 100 69 Total Bilirubin 0.8 0.7 Sodium Level 130 134 Potassium Level 3.9 4.4 Chloride Level 96 103 Carbon Dioxide Level 23.3 24.1 Anion Gap 11 7 Estimat Glomerular Filtration Rate 129 102 Lipase 129 Blood Gas Puncture Site LT BRACHIAL Blood Gas Patient Temperature 98.6 Blood Gas HCO3 20 Blood Gas Base Excess -4.9 Blood Gas Oxygen Saturation 94 Arterial Blood pH 7.33 Arterial Blood Partial Pressure CO2 39 Arterial Blood Partial Pressure O2 114 Arterial Blood Oxygen Content 18.2 Arterial Blood Carboxyhemoglobin 2.9 Arterial Blood Methemoglobin 1.1 Blood Gas Hemoglobin 13.7 Oxygen Delivery Device VENTILATOR Blood Gas Ventilator Setting 16/450/IT1.0/5PEEP Blood Gas Inspired Oxygen 40 Nasal Screen MRSA (PCR) MRSA NOT DETECTED Result Diagram: 07/10/17 0525 07/10/17 0525 Imaging Last 48 hours Impressions Chest X-Ray 07/10/17 0000 Signed Impressions: Service Date/Time: Monday, July 10, 2017 01:15 - CONCLUSION: Left basilar atelectasis.. Leon Burns MD Abdomen/Pelvis CT 07/09/17 1644 Signed Impressions: Service Date/Time: Sunday, July 09, 2017 18:01 - CONCLUSION: Pneumoperitoneum and free peritoneal fluid worrisome for bowel perforation. Multiple low density liver lesions consistent with metastatic disease. MD Ruy Andre VTE Risk Assessment Caprini VTE Risk Assessment: Mod/High Risk (score >= 2) Caprini Risk Assessment Model Point Value = 1 Point Value = 2 Point Value = 3 Point Value = 5 Age 41-60 Minor surgery BMI > 25 kg/m2 Swollen legs Varicose veins or History of unexplained or recurrent spontaneous Oral contraceptives or hormone replacement Sepsis (< 1 month) Serious lung disease, including pneumonia (< 1 month) Abnormal pulmonary function Acute myocardial infarction Congestive heart failure (< 1 month) History of inflammatory bowel disease Medical patient at bed rest Age 61-74 Arthroscopic surgery Major open surgery (> 45 min) Laparoscopic surgery (> 45 min) Malignancy Confined to bed (> 72 hours) Immobilizing plaster cast Central venous access Age >= 75 History of VTE Family history of VTE Factor V Leiden Prothrombin [id number] Lupus anticoagulant Anticardiolipin antibodies Elevated serum homocysteine Heparin-induced thrombocytopenia Other congenital or acquired thrombophilia Stroke (< 1 month) Elective arthroplasty Hip, pelvis, or leg fracture Acute spinal cord injury (< 1 month) Prophylaxis Regimen Total Risk Factor Score Risk Level Prophylaxis Regimen 0-1 Low Early ambulation 2 Moderate Order ONE of the following: *Sequential Compression Device (SCD) *Heparin 5000 units SQ BID 3-4 Higher Order ONE of the following medications: *Heparin 5000 units SQ TID *Enoxaparin/Lovenox 40 mg SQ daily (WT < 150 kg, CrCl > 30 mL/min) *Enoxaparin/Lovenox 30 mg SQ daily (WT < 150 kg, CrCl > 10-29 mL/min) *Enoxaparin/Lovenox 30 mg SQ BID (WT < 150 kg, CrCl > 30 mL/min) AND/OR *Sequential Compression Device (SCD) 5 or more Highest Order ONE of the following medications: *Heparin 5000 units SQ TID (Preferred with Epidurals) *Enoxaparin/Lovenox 40 mg SQ daily (WT < 150 kg, CrCl > 30 mL/min) *Enoxaparin/Lovenox 30 mg SQ daily (WT < 150 kg, CrCl > 10-29 mL/min) *Enoxaparin/Lovenox 30 mg SQ BID (WT < 150 kg, CrCl > 30 mL/min) AND *Sequential Compression Device (SCD) Assessment and Plan Problem List: (1) COPD (chronic obstructive pulmonary disease) ICD Codes: J44.9 - Chronic obstructive pulmonary disease, unspecified (2) Bowel perforation ICD Codes: K63.1 - Perforation of intestine (nontraumatic) Status: Acute (3) Lung cancer ICD Codes: C34.90 - Malignant neoplasm of unspecified part of unspecified bronchus or lung Assessment and Plan 06/30/17 Perforated viscus: s/p sanjiv patch repair. On levaquin, flagyl and fluconazole. NG tube present. Dressing is D+I pain well controlled. COPD: No SOB noted. On DuoNEB as needed Stage IV lung cancer: Oncologist Dr. Brody. Multiple liver nodules noted during surgery biopsy performed Elevated AST/ALT: Improving will monitor Labs in AM GI prophylaxis- pantoprazole DVT : SCDs I and the BUILDING CONSTRUCTION CONTRACTOR have both examined this patient and reviewed this note and I agree with these findings and plan of care. Lisa Guy. BUILDING CONSTRUCTION [employer]OR Jul 10, 2017 15:27
[2017-07-10] MEDS: LEVOFLOXACIN 500 MG PREMIX INJ 100 ML IV SCH (17:33)
[2017-07-10] MEDS: FLUCONAZOLE 400 MG PREMIX BAG 200 ML IV SCH (23:13)
[2017-07-11] VITALS (12 sets, daily range): BP systolic 100–163; BP diastolic 58–73; PULSE 56–95; RESP 12–29; TEMP 97.4–99; O2SAT 93–97
[2017-07-11] MEDS: PANTOPRAZOLE INJ 80 MG in SODIUM CHLORIDE 0.9% INJ 100 ML IV SCH (03:59)
[2017-07-11] MEDS: RESP: ALBUTEROL 2.5 MG/IPRATROPIUM 0.5 MG NEB (SCH) NEB ×4 (04:00→21:06)
[2017-07-11 04:44] LABS: HEMATOCRIT 37.1 % (35.0-46.0); MEAN CELL VOLUME 100.2 FL (80.0-100.0); MEAN CORPUSCULAR HEMOGLOBIN 33.7 PG (27.0-34.0); MEAN CORPUSCULAR HGB CONC 33.6 % (32.0-36.0); PLATELET COUNT 227 TH/MM3 (150-450); RED BLOOD COUNT 3.71 MIL/MM3 (4.00-5.30); RED CELL DISTRIBUTION WIDTH 14.4 % (11.6-17.2); REVIEW FLAG FINAL; WHITE BLOOD COUNT 12.3 TH/MM3 (4.0-11.0)
[2017-07-11 05:18] LABS: BICARBONATE 22.5 MEQ/L (21.0-32.0); POTASSIUM 3.9 MEQ/L (3.5-5.1)
[2017-07-11] MEDS: PCA - TOTAL MG MORPHINE DELIVERED PER SHIFT SCH ×3 (06:00→21:14)
[2017-07-11] MEDS: D5-NS + KCL 20 MEQ INJ 1,000 ML IV SCH ×2 (07:58→21:05)
[2017-07-11] MEDS: SODIUM CHLORIDE 0.9% FLUSH 5 ML FLUSH IVF SCH ×2 (08:34→21:00)
--- NOTE | 2017-07-11 08:40 | HHI.PR ---
Subjective Subjective Notes post op pain, had some popcicles, no BM/flatus yet Objective Vitals/I&O Vital Signs Date Time Temp Pulse Resp B/P (MAP) Pulse Ox O2 Delivery O2 Flow Rate FiO2 07/11/17 08:00 98.0 67 13 163/69 (100) 95 07/11/17 07:00 Nasal Cannula 2.00 07/10/17 06:50 40 Labs Laboratory Tests Test 07/11/17 04:25 White Blood Count 12.3 Red Blood Count 3.71 Hemoglobin 12.5 Hematocrit 37.1 Mean Corpuscular Volume 100.2 Mean Corpuscular Hemoglobin 33.7 Mean Corpuscular Hemoglobin Concent 33.6 Red Cell Distribution Width 14.4 Platelet Count 227 Mean Platelet Volume 7.3 Blood Urea Nitrogen 6 Creatinine 0.36 Random Glucose 134 Calcium Level 7.9 Sodium Level 138 Potassium Level 3.9 Chloride Level 110 Carbon Dioxide Level 22.5 Anion Gap 6 Estimat Glomerular Filtration Rate 180 Thyroid Stimulating Hormone 3rd Gen 6.910 Cardiovascular: Regular Lungs: Clear Abdomen: Non-distended, Post-op tenderness, BS normal Wound Wound : Wound Location: Abdomen Appearance: Clean & Dry A/P Assessment and Plan POD2 perf ulcer oob ok for ice and popcicles abx and anti-fungals await path transfer to [facility] decrease IVF to 75 Patrick Núñez MD Jul 11, 2017 08:40
[2017-07-11] MEDS: PANTOPRAZOLE SODIUM 40 MG VIAL IV PUSH SCH ×2 (09:00→21:06)
[2017-07-11] MEDS ORDERED: PNEUMOCOCCAL POLYVALENT INJ 25 MCG/0.5 ML SYR IM ONE (09:00)
--- NOTE | 2017-07-11 10:32 | HHI.PR ---
Subjective Remarks Patient is alert and oriented complaining of pain in abdominal region Objective Vital Signs Date Time Temp Pulse Resp B/P (MAP) Pulse Ox O2 Delivery O2 Flow Rate FiO2 07/11/17 10:00 83 07/11/17 08:55 97 Nasal Cannula 4.00 07/11/17 08:00 98.0 67 13 163/69 (100) 95 07/11/17 08:00 67 07/11/17 07:00 94 Nasal Cannula 2.00 07/11/17 06:00 70 07/11/17 06:00 16 07/11/17 04:00 56 07/11/17 04:00 98.1 56 18 134/63 (86) 94 07/11/17 02:00 58 07/11/17 00:00 97.6 60 12 100/58 (72) 96 07/11/17 00:00 60 07/10/17 22:01 97 Nasal Cannula 2.00 07/10/17 22:00 15 07/10/17 22:00 66 07/10/17 20:00 98.4 68 20 103/61 (75) 96 07/10/17 20:00 73 07/10/17 19:00 94 Nasal Cannula 2.00 07/10/17 18:00 72 07/10/17 16:00 64 07/10/17 16:00 98.9 64 14 94/52 (66) 96 07/10/17 14:00 70 07/10/17 14:00 19 07/10/17 12:00 98.2 65 16 104/51 (68) 95 07/10/17 12:00 65 07/10/17 10:42 16 I/O 07/10/17 07/10/17 07/10/17 07/11/17 07/11/17 07/11/17 07:00 15:00 23:00 07:00 15:00 23:00 Intake Total 1430 ml 209.8 ml 1600 ml 100 ml Output Total 640 ml 980 ml 850 ml Balance 790 ml 209.8 ml 620 ml -750 ml Intake Oral 0 ml 300 ml IV Total 1430 ml 209.8 ml 1300 ml 100 ml Output Urine Total 550 ml 550 ml 600 ml Gastric Drainage Total 300 ml 100 ml Drainage Total 90 ml 130 ml 150 ml # Bowel Movements 0 0 0 Result Diagram: 07/11/1742407/11/17424 Imaging Last 48 hours Impressions Chest X-Ray 07/10/17 0000 Signed Impressions: Service Date/Time: Monday, July 10, 2017 01:15 - CONCLUSION: Left basilar atelectasis.. Leon Burns MD Abdomen/Pelvis CT 07/09/17 1644 Signed Impressions: Service Date/Time: Sunday, July 09, 2017 18:01 - CONCLUSION: Pneumoperitoneum and free peritoneal fluid worrisome for bowel perforation. Multiple low density liver lesions consistent with metastatic disease. Galileo Macedo MD Procedures 07/09/17 Exploratory laparotomy, Over-sew of gastric ulcer with Edvin patch, Excision liver nodule for biopsy. Objective Remarks GENERAL: Alert and oriented SKIN: Warm and dry. Abdominal drg dry and intact. HEAD: Normocephalic. EYES: No scleral icterus. No injection or drainage. NECK: Supple, trachea midline. No JVD or lymphadenopathy. CARDIOVASCULAR: Regular rate and rhythm without murmurs, gallops, or rubs. RESPIRATORY: Breath sounds equal bilaterally. No accessory muscle use. GASTROINTESTINAL: Abdomen soft, non-tender, nondistended. MUSCULOSKELETAL: No cyanosis, or edema. BACK: Nontender without obvious deformity. No CVA tenderness. Medications and IVs Current Medications Medications (Trade) Dose Ordered Sig/Salvatore Route Start Time Stop Time Status Last Admin Potassium Chloride/Dextrose/ Sod Cl 1,000 ml @ 75 mls/hr [id number] IV 07/09/17 22:49 07/11/17 07:58 (NS Flush) 2 ml UNSCH PRN IVF 07/09/17 23:00 (NS Flush) 2 ml BID IVF 07/10/17 09:00 07/11/17 08:34 (Zofran Inj) 4 mg Q4H PRN IV PUSH 07/09/17 23:00 (Narcan Inj) 0.4 mg UNSCH PRN IV PUSH 07/09/17 23:00 (Benadryl Inj) 25 mg Q6H PRN IV PUSH 07/09/17 23:00 (Morphine 1 Mg/ ml SPRING BENDER) 30 mg UNSCH IV 07/09/17 23:00 07/10/17 10:42 SPRING [employer]ENDER Dosage Infused (Pha) 1 Q8HR .XX 07/10/17 06:00 07/11/17 06:00 Levofloxacin/ Dextrose 100 ml @ 100 mls/hr Q24H IV 07/10/17 18:00 07/10/17 17:33 Fluconazole/ Sodium Chloride 200 ml @ 100 mls/hr Q24H IV 07/09/17 23:00 07/10/17 23:13 Propofol 100 ml @ 1.53 mls/hr TITRATE PRN IV 07/09/17 23:30 07/10/17 03:50 Fentanyl Citrate 250 ml @ 5 mls/hr TITRATE PRN IV 07/09/17 23:45 07/10/17 00:30 (Duoneb Neb) 1 ampule Q6HR NEB NEB 07/10/17 05:30 07/10/17 09:04 (Duoneb Neb) 1 ampule Q2HR NEB PRN NEB 07/10/17 05:30 (Protonix Inj) 40 mg Q12H IV PUSH 07/11/17 09:00 Assessment and Plan Problem List: (1) COPD (chronic obstructive pulmonary disease) ICD Codes: J44.9 - Chronic obstructive pulmonary disease, unspecified (2) Bowel perforation ICD Codes: K63.1 - Perforation of intestine (nontraumatic) Status: Acute (3) Lung cancer ICD Codes: C34.90 - Malignant neoplasm of unspecified part of unspecified bronchus or lung Assessment and Plan 07/10/17 Perforated viscus: s/p edvin patch repair. On levaquin, flagyl and fluconazole. NG tube present. Dressing is D+I pain well controlled. COPD: No SOB noted. On DuoNEB as needed Stage IV lung cancer: Oncologist Dr. Brody. Multiple liver nodules noted during surgery biopsy performed Elevated AST/ALT: Improving will monitor Labs in AM GI prophylaxis- pantoprazole DVT : SCDs 07/11/17 Perforated viscus: s/p edvin patch repair. On antibiotics has remained afebrile. NG tube present. Dressing is D+I complaining of pain encouraged to to SPRING BENDER. PT ordered. COPD: No SOB noted. On DuoNEB as needed Stage IV lung cancer: Oncologist Dr. Brody. Multiple liver nodules noted during surgery biopsy performed GERD: Gastric ulcer. Protonix BID HTN: Blood pressure elevated this morning however isolated may be related to pain will monitor. Labs in AM Plans to transfer to floor I and the CAR SUPERVISOR have both examined this patient and reviewed this note and I agree with these findings and plan of care. Lisa Guy. [place] Jul 11, 2017 10:32
[2017-07-11] MEDS: LEVOFLOXACIN 500 MG PREMIX INJ 100 ML IV SCH (17:33)
[2017-07-11] MEDS: FLUCONAZOLE 400 MG PREMIX BAG 200 ML IV SCH (23:40)
[2017-07-12] VITALS (7 sets, daily range): BP systolic 100–139; BP diastolic 57–74; PULSE 67–89; RESP 16–20; TEMP 96.1–97.4; O2SAT 92–94
[2017-07-12] MEDS: RESP: ALBUTEROL 2.5 MG/IPRATROPIUM 0.5 MG NEB (SCH) NEB ×4 (03:44→22:00)
[2017-07-12] MEDS: PCA - TOTAL MG MORPHINE DELIVERED PER SHIFT SCH ×3 (06:00→22:00)
[2017-07-12] MEDS: D5-NS + KCL 20 MEQ INJ 1,000 ML IV SCH ×2 (06:49→13:09)
[2017-07-12] MEDS: PANTOPRAZOLE SODIUM 40 MG VIAL IV PUSH SCH ×2 (09:00→21:10)
[2017-07-12] MEDS: SODIUM CHLORIDE 0.9% FLUSH 5 ML FLUSH IVF SCH ×2 (09:00→21:00)
[2017-07-12 09:06] LABS: HEMATOCRIT 40.6 % (35.0-46.0); MEAN CELL VOLUME 98.2 FL (80.0-100.0); MEAN CORPUSCULAR HEMOGLOBIN 33.8 PG (27.0-34.0); MEAN CORPUSCULAR HGB CONC 34.5 % (32.0-36.0); PLATELET COUNT 238 TH/MM3 (150-450); RED BLOOD COUNT 4.13 MIL/MM3 (4.00-5.30); RED CELL DISTRIBUTION WIDTH 14.3 % (11.6-17.2); REVIEW FLAG FINAL; WHITE BLOOD COUNT 10.7 TH/MM3 (4.0-11.0)
--- NOTE | 2017-07-12 09:30 | HHI.PR ---
Subjective Subjective Notes nausea and headaches last night, pain controlled in abdomen Objective Vitals/I&O Vital Signs Date Time Temp Pulse Resp B/P (MAP) Pulse Ox O2 Delivery O2 Flow Rate FiO2 07/12/17 08:00 Nasal Cannula 2.00 07/12/17 08:00 96.3 67 16 126/67 (86) 94 07/10/17 06:50 40 Labs Laboratory Tests Test 07/12/17 06:53 White Blood Count 10.7 Red Blood Count 4.13 Hemoglobin 14.0 Hematocrit 40.6 Mean Corpuscular Volume 98.2 Mean Corpuscular Hemoglobin 33.8 Mean Corpuscular Hemoglobin Concent 34.5 Red Cell Distribution Width 14.3 Platelet Count 238 Mean Platelet Volume 7.8 Cardiovascular: Regular Lungs: Clear Abdomen: Non-distended, Post-op tenderness, BS normal Narrative Exam drain with serosanginous fluid. Wound Wound : Wound Location: Abdomen Appearance: Clean & Dry A/P Assessment and Plan POD perf ulcer oob DC NG, start clear liquids abx and anti-fungals path confirms metastatic lung ca in liver, i have not dw pt yet. i called dr yu and he is aware. decrease IVF to 50 will transition to po abx/antifungals tomorrow if she tolerates clears and drain does not show a leak. Patrick Núñez MD Jul 12, 2017 09:30
[2017-07-12 10:10] LABS: BICARBONATE 25.1 MEQ/L (21.0-32.0)
[2017-07-12 10:16] LABS: POTASSIUM 2.9 MEQ/L (3.5-5.1)
[2017-07-12] MEDS ORDERED: POTASSIUM CHLORIDE 20 MEQ CONTROLLED RELEASE TAB PO ONE (11:45)
--- NOTE | 2017-07-12 13:51 | HHI.PR ---
Subjective Remarks Patient alert and oriented. Pain well controlled however feeling nauseated Objective Vital Signs Date Time Temp Pulse Resp B/P (MAP) Pulse Ox O2 Delivery O2 Flow Rate FiO2 07/12/17 12:00 96.6 89 16 100/57 (71) 94 07/12/17 09:30 92 Nasal Cannula 4.00 07/12/17 08:00 Nasal Cannula 2.00 07/12/17 08:00 96.3 67 16 126/67 (86) 94 07/12/17 06:00 20 07/12/17 04:00 96.6 76 20 139/74 (95) 93 07/12/17 00:00 97.4 83 20 137/65 (89) 94 07/11/17 21:14 20 07/11/17 21:06 94 Nasal Cannula 4.00 07/11/17 20:00 97.4 85 20 139/73 (95) 93 07/11/17 19:50 Nasal Cannula 2.00 07/11/17 16:00 99.0 85 16 141/66 (91) 95 07/11/17 16:00 85 07/11/17 14:00 95 07/11/17 14:00 23 I/O 07/11/17 07/11/17 07/11/17 07/12/17 07/12/17 07/12/17 07:00 15:00 23:00 07:00 15:00 23:00 Intake Total 100 ml 983 ml 0 ml Output Total 850 ml 1960 ml 3025 ml Balance -750 ml -977 ml -3025 ml Intake Oral 120 ml 0 ml IV Total 100 ml 863 ml Output Urine Total 600 ml 1900 ml 3025 ml Gastric Drainage Total 100 ml 50 ml Drainage Total 150 ml 10 ml # Bowel Movements 0 0 0 Result Diagram: 07/12/1753 07/12/17652 Procedures 07/09/17 Exploratory laparotomy, Over-sew of gastric ulcer with Edvin patch, Excision liver nodule for biopsy. Objective Remarks GENERAL: Alert and oriented SKIN: Warm and dry. Abdominal drg dry and intact. HEAD: Normocephalic. EYES: No scleral icterus. No injection or drainage. NECK: Supple, trachea midline. No JVD or lymphadenopathy. CARDIOVASCULAR: Regular rate and rhythm without murmurs, gallops, or rubs. RESPIRATORY: Breath sounds equal bilaterally. No accessory muscle use. GASTROINTESTINAL: Abdomen soft, non-tender, nondistended. MUSCULOSKELETAL: No cyanosis, or edema. BACK: Nontender without obvious deformity. No CVA tenderness. Medications and IVs Current Medications Medications (Trade) Dose Ordered Sig/Salvatore Route Start Time Stop Time Status Last Admin Potassium Chloride/Dextrose/ Sod Cl 1,000 ml @ 50 mls/hr Q20H IV 07/09/17 22:49 07/12/17 13:09 (NS Flush) 2 ml UNSCH PRN IVF 07/09/17 23:00 (NS Flush) 2 ml BID IVF 07/10/17 09:00 07/11/17 21:00 (Zofran Inj) 4 mg Q4H PRN IV PUSH 07/09/17 23:00 07/12/17 04:27 (Narcan Inj) 0.4 mg UNSCH PRN IV PUSH 07/09/17 23:00 (Benadryl Inj) 25 mg Q6H PRN IV PUSH 07/09/17 23:00 (Morphine 1 Mg/ ml BIOLOGICAL SCIENTIST) 30 mg UNSCH IV 07/09/17 23:00 07/10/17 10:42 BIOLOGICAL SCIENTIST Dosage Infused (Pha) 1 Q8HR .XX 07/10/17 06:00 07/12/17 06:00 Levofloxacin/ Dextrose 100 ml @ 100 mls/hr Q24H IV 07/10/17 18:00 07/11/17 17:33 Fluconazole/ Sodium Chloride 200 ml @ 100 mls/hr Q24H IV 07/09/17 23:00 07/11/17 23:40 Propofol 100 ml @ 1.53 mls/hr TITRATE PRN IV 07/09/17 23:30 07/10/17 03:50 Fentanyl Citrate 250 ml @ 5 mls/hr TITRATE PRN IV 07/09/17 23:45 07/10/17 00:30 (Duoneb Neb) 1 ampule Q6HR NEB NEB 07/10/17 05:30 07/10/17 09:04 (Duoneb Neb) 1 ampule Q2HR NEB PRN NEB 07/10/17 05:30 (Protonix Inj) 40 mg Q12H IV PUSH 07/11/17 09:00 07/12/17 09:00 Assessment and Plan Problem List: (1) COPD (chronic obstructive pulmonary disease) ICD Codes: J44.9 - Chronic obstructive pulmonary disease, unspecified (2) Bowel perforation ICD Codes: K63.1 - Perforation of intestine (nontraumatic) Status: Acute (3) Lung cancer ICD Codes: C34.90 - Malignant neoplasm of unspecified part of unspecified bronchus or lung Assessment and Plan 07/10/17 Perforated viscus: s/p edvin patch repair. On levaquin, flagyl and fluconazole. NG tube present. Dressing is D+I pain well controlled. COPD: No SOB noted. On DuoNEB as needed Stage IV lung cancer: Oncologist Dr. Brody. Multiple liver nodules noted during surgery biopsy performed Elevated AST/ALT: Improving will monitor Labs in AM GI prophylaxis- pantoprazole DVT : SCDs 07/11/17 Perforated viscus: s/p edvin patch repair. On antibiotics has remained afebrile. NG tube present. Dressing is D+I complaining of pain encouraged to to BIOLOGICAL SCIENTIST. PT ordered. COPD: No SOB noted. On DuoNEB as needed Stage IV lung cancer: Oncologist Dr. Brody. Multiple liver nodules noted during surgery biopsy performed GERD: Gastric ulcer. Protonix BID HTN: Blood pressure elevated this morning however isolated may be related to pain will monitor. 07/12/17 Perforated viscus: NG tube removed per surgery today. Clear liquid diet started. Complaining of feeling nauseated most likely related to pain medication. On Protonix BID will monitor. COPD: No SOB noted however Oxygen increased to 4 liters with sat at 92% will order chest Xray. Lung sounds diminished. IS encouraged and activity. Patient has remained afebrile with WBC 10.7 Hypokalemia: k 2.9 IV replacement given. Recheck ordered 2 hours after replacement completed Hyponatremia: Sodium is 126. Nephrology consulted for recommendations Lung cancer: Liver biopsy positive for metastatic disease. Surgery discussed with oncologist. Labs in AM I and the DETONATOR MAKER have both examined this patient and reviewed this note and I agree with these findings and plan of care. Lisa Guy. [facility] Jul 12, 2017 13:51
--- NOTE | 2017-07-12 14:29 | OTSOAPIP ---
RECEIVED OCCUPATIONAL THERAPY ORDERS. ATTEMPTED TO SEE PATIENT FOR INITIAL EVALUATION, HOWEVER UPON ARRIVAL PATIENT IMMEDIATELY AND ADAMANTLY REFUSED SERVICES REPORTING SHE DOES NOT NEED THEM. PATIENT STATES, "I HAVE BEEN THROUGH TWO HIP SURGERIES AND OTHER SURGERIES. I WILL BE ABLE TO GO HOME AND COOK AND CLEAN AND TAKE CARE OF MYSELF WITH NO PROBLEMS. I DON'T NEED YOU." THEREFORE OCCUPATIONAL THERAPY WILL SIGN OFF. INTERDISCIPLINARY COMMUNICATION: REVIEWED ELECTRONIC MEDICAL RECORD Therapist: Sharyn Taylor, OTR/L Signature on file
--- NOTE | 2017-07-12 16:21 | RADRPT ---
EXAM DATE/TIME: 07/12/2017 16:32 [place] COMPARISON: CHEST SINGLE AP, July 10, 2017, 1:15. INDICATIONS : Congestion MEDICAL HISTORY : Chronic obstructive pulmonary disease. Carcinoma, lung. SURGICAL HISTORY : None. ENCOUNTER: Subsequent ACUITY: 3 days PAIN SCORE: 0/10 LOCATION: chest FINDINGS: Single portable frontal view the chest shows worsening consolidation in the left lung base. Tiny left effusion. Right lung is clear with exception of subtle interstitial prominence within the right uppe r lobe. Heart to the upper limits of normal in terms of size. A degenerative scoliotic spine. CONCLUSION: 1. Worsening consolidation within the left lower lobe with new tiny left effusion. Infectious etiolog y suspected. Mina Mann Jr., MD on July 12, 2017 at 16:16 Board Certified Radiologist. This report was verified electronically.
[2017-07-12] MEDS: LEVOFLOXACIN 500 MG PREMIX INJ 100 ML IV SCH (17:04)
--- NOTE | 2017-07-12 17:53 | PD.CONS ---
HPI Consult Requested By Reason for Consult Hyponatremia Primary Care Physician No Primary Care Physician History of Present Illness 66-year-old very pleasant female with a history of metastatic non-small cell carcinoma. She indicated to me that she has not been on chemotherapy for a number of years. She also stated that she did have a history of hyponatremia predating this admission which was evaluated by her primary care physician. She was taking salt pills initially subsequently discontinuing same but she was advised to resume them by her oncologist 1 g twice a day. Patient was admitted to this institution with a history of abdominal pain subsequently on imaging studies have free air in the abdomen and underwent laparotomy and found to have a perforated gastric ulcer. Sodium level on presentation 130. She has been nothing by mouth and has been unable to take her salt pills. Sodium level noted to be 126 today. Also evidence of hypokalemia. She does have a history of hypothyroidism but has not yet received his Synthroid this admission. No history of adrenal disease. Review of Systems Constitutional: COMPLAINS OF: Fatigue, Change in appetite Cardiovascular: DENIES: Chest pain, Palpitations, Syncope, Dyspnea on Exertion , PND, Lower Extremity Edema, Orthopnea, Claudication Gastrointestinal: COMPLAINS OF: Abdominal pain, Anorexia, DENIES: Black stools , Bloody stools, Constipation, Diarrhea, Nausea, Vomiting, Difficulty Swallowing Musculoskeletal: DENIES: Joint pain, Muscle aches, Stiffness, Joint Swelling, Back pain, Neck pain Integumentary: DENIES: Abnormal pigmentation, Pruritus, Rash, Nail changes, Breast masses, Breast skin changes, Nipple discharge Past Family Social History Allergies: Coded Allergies: penicillin G (Unverified Allergy, Severe, SWELLING, HIVES, 07/09/17) bacitracin (Verified Allergy, Intermediate, rash, 07/09/17) polymyxin B (Verified Allergy, Intermediate, rash, 07/09/17) Past Medical History Metastatic lung cancer non-small cell Chronic hyponatremia Hypothyroidism Recently diagnosed perforated gastric ulcer. Past Surgical History As above. Reported Medications Reported Meds & Active Scripts Active Reported Clindamycin Hcl (Clindamycin HCl) 150 Mg Cap 150 Mg PO ONCE Sodium Chloride 1000 Mg Tab (Sodium Chloride) 1 Gm Tab 1 Gm PO DAILY Ultram (Tramadol HCl) 50 Mg Tab 50 Mg .ROUTE Q4H PRN Active Ordered Medications Current Medications Ondansetron HCl (Zofran Inj) 4 mg ONCE ONCE IVP Last administered on 17:16; Start 07/09/17 at 16:45; Stop 07/09/17 at 16:46; Status DC Sodium Chloride (NS Flush) 2 ml UNSCH PRN IV FLUSH FLUSH AFTER USING IV ACCESS Last administered on 07/09/17 19:50; Start 07/09/17 at 16:45; Stop 07/09/17 at 20:06; Status DC Iohexol (Omnipaque 350 Inj) 95 ml STK-MED ONCE IVCONTRAST Last administered on 07/09/17 18:06; Start 07/09/17 at 18:06; Stop 07/09/17 at 18:07; Status DC Metronidazole 100 ml @ 100 mls/hr ONCE ONCE IV Last administered on 19:50; Start 07/09/17 at 18:45; Stop 07/09/17 at 19:44; Status DC Levofloxacin/ Dextrose 150 ml @ 100 mls/hr ONCE ONCE IV Last administered on 07/09/17 18:46; Start 07/09/17 at 18:45; Stop 07/09/17 at 20:14; Status DC Sodium Chloride 1,000 ml @ 2,000 mls/hr Q30M ONCE IV Last administered on 18:46; Start 07/09/17 at 18:45; Stop 07/09/17 at 19:14; Status DC Morphine Sulfate (Morphine Inj) 4 mg ONCE ONCE IV PUSH Last administered on 19:41; Start 07/09/17 at 19:45; Stop 07/09/17 at 19:46; Status DC Sodium Chloride (NS Flush) 2 ml UNSCH PRN IV FLUSH FLUSH AFTER USING IV ACCESS ; Start 07/09/17 at 20:00; Stop 07/09/17 at 22:56; Status DC Sodium Chloride (NS Flush) 2 ml BID IV FLUSH Last administered on 07/09/17 21 :00; Start 07/09/17 at 21:00; Stop 07/09/17 at 22:56; Status DC Ondansetron HCl (Zofran Inj) 4 mg Q6H PRN IVP NAUSEA OR VOMITING; Start at 20:00; Stop 07/09/17 at 22:56; Status DC Naloxone HCl (Narcan Inj) 0.4 mg UNSCH PRN IV PUSH SEE LABEL COMMENTS; Start 07/09/17 at 20:00; Stop 07/09/17 at 22:56; Status DC Morphine Sulfate (Morphine Inj) 8 mg STK-MED ONCE .ROUTE Last administered on 07/09/17 21:28; Start 07/09/17 at 21:17; Stop 07/09/17 at 21:18; Status DC Bupivacaine HCl/ Epinephrine Bitart (Sensorcaine-Epinephrine 0.25% Inj) 50 ml STK-MED ONCE .ROUTE Last administered on 07/09/17 21:56; Start 07/09/17 at 21:28; Stop 07/09/17 at 21:29; Status DC Lactated Ringer's 1,000 ml @ 30 mls/hr Q24H PRN IV SEE LABEL COMMENTS Last administered on 07/09/17 20:30; Start 07/09/17 at 21:45; Stop 07/09/17 at 22 :56; Status DC Sodium Chloride 500 ml @ 30 mls/hr [id number] PRN IV SEE LABEL COMMENTS; Start at 21:45; Stop 07/09/17 at 22:56; Status DC Metoprolol Tartrate (Lopressor) 25 mg SURGICAL TRAINING SPECIALIST PRN PO SEE LABEL COMMENTS; Start 07/09/17 at 21:45; Stop 07/09/17 at 22:56; Status DC Povidone Iodine (Betadine 5% Antisepsis Kit) 1 applic SURGICAL TRAINING SPECIALIST PRN EACH NARE SEE LABEL COMMENTS; Start 07/09/17 at 21:45; Stop 07/09/17 at 22:57; Status DC Chlorhexidine Gluconate (Chlorhexidine 2% Cloth) 3 pack SURGICAL TRAINING SPECIALIST PRN TOPICAL SEE LABEL COMMENTS; Start 07/09/17 at 21:45; Stop 07/09/17 at 22:57; Status DC Insulin Human Regular (NovoLIN R INJ) See Protocol Table ... SURGICAL TRAINING SPECIALIST PRN SQ SEE PROTOCOL TABLE; Start 07/09/17 at 21:45; Stop 07/09/17 at 22:57; Status DC Potassium Chloride/Dextrose/ Sod Cl 1,000 ml @ 50 mls/hr Q20H IV Last administered on 07/12/17 13:09; Start 07/09/17 at 22:49 IV Flush (NS Flush) 2 ml UNSCH PRN IVF FLUSH AFTER USING IV ACCESS; Start at 23:00 IV Flush (NS Flush) 2 ml BID IVF Last administered on 07/11/17 21:00; Start 07/10/17 at 09:00 Ondansetron HCl (Zofran Inj) 4 mg Q4H PRN IV PUSH NAUSEA OR VOMITING Last administered on 07/12/17 04:27; Start 07/09/17 at 23:00 Metronidazole 100 ml @ 200 mls/hr Q8H IV Last administered on 07/10/17 21:22 ; Start 07/10/17 at 04:00; Stop 07/10/17 at 20:29; Status DC Miscellaneous Information (Post-op Orders (for Pharmacy)) STAT ONCE XX ; Start 07/09/17 at 23:00; Stop 07/09/17 at 23:01; Status DC Miscellaneous Information 1 ONCE ONCE XX ; Start 07/09/17 at 23:00; Stop at 23:01; Status DC Naloxone HCl (Narcan Inj) 0.4 mg UNSCH PRN IV PUSH RESPIRATORY RATE LESS THAN 10; Start 07/09/17 at 23:00 Diphenhydramine HCl (Benadryl Inj) 25 mg Q6H PRN IV PUSH ITCHING; Start at 23:00 Morphine Sulfate (Morphine 1 Mg/ ml VALUE STREAM COACH) 30 mg UNSCH IV Last administered on 10:42; Start 07/09/17 at 23:00 VALUE STREAM COACH Dosage Infused (Pha) 1 Q8HR .XX Last administered on 07/12/17 14:00; Start 07/10/17 at 06:00 Levofloxacin/ Dextrose 100 ml @ 100 mls/hr Q24H IV Last administered on 17:04; Start 07/10/17 at 18:00 Fluconazole/ Sodium Chloride 200 ml @ 100 mls/hr Q24H IV Last administered on 07/11/17 23:40; Start 07/09/17 at 23:00 Pantoprazole Sodium 80 mg/ Sodium Chloride 100 ml @ 10 mls/hr Q10H IV Last administered on 10/25/17at 03:59; Start 07/09/17 at 23:00; Stop 07/11/17 at 08 :38; Status DC Propofol 100 ml @ As Directed STK-MED ONCE .ROUTE Last administered on 23:00; Start 07/09/17 at 23:00; Stop 07/09/17 at 23:01; Status DC Miscellaneous Information ALL NURSING DEPARTME... UNSCH PRN .XX SEE LABEL COMMENTS; Start 07/09/17 at 23:15; Stop 07/10/17 at 23:14; Status DC Propofol 100 ml @ 1.53 mls/hr TITRATE PRN IV SEDATION Last administered on 03:50; Start 07/09/17 at 23:30 Fentanyl Citrate 250 ml @ 5 mls/hr TITRATE PRN IV SEDATION Last administered on 07/10/17 00:30; Start 07/09/17 at 23:45 Morphine Sulfate (Morphine Inj) 5 mg ONCE ONCE IV PUSH ; Start 07/09/17 at 21: 30; Stop 07/09/17 at 23:52; Status DC Albuterol/ Ipratropium (Duoneb Neb) 1 ampule Q6HR NEB NEB Last administered on 07/10/17 09:04; Start 07/10/17 at 05:30 Albuterol/ Ipratropium (Duoneb Neb) 1 ampule Q2HR NEB PRN NEB WHEEZING; Start 07/10/17 at 05:30 Pneumococcal Polyvalent Vaccine (Pneumovax-23 Inj) 25 mcg ONCE ONCE IM ; Start 07/11/17 at 09:00; Stop 07/11/17 at 09:01; Status DC Pantoprazole Sodium (Protonix Inj) 40 mg Q12H IV PUSH Last administered on 09:00; Start 07/11/17 at 09:00 Lidocaine HCl (Xylocaine-Mpf 1% Inj) 5 ml STK-MED ONCE OTHER ; Start 07/09/17 at 12:00; Stop 07/11/17 at 13:10; Status DC Rocuronium Mobile (Zemuron Inj) 50 mg STK-MED ONCE IV PUSH ; Start 07/09/17 at 12:00; Stop 07/11/17 at 13:10; Status DC Phenylephrine HCl (Neosynephrine/ NS 1000 Mcg/10ml Syr) 1,000 mcg STK-MED ONCE IV ; Start 07/09/17 at 12:00; Stop 07/11/17 at 13:10; Status DC Succinylcholine Chloride (Quelicin Inj) 100 mg STK-MED ONCE IV PUSH ; Start at 12:00; Stop 07/11/17 at 13:10; Status DC Midazolam HCl (Versed Inj) 2 mg STK-MED ONCE IV ; Start 07/09/17 at 12:00; Stop 07/11/17 at 13:10; Status DC Dexamethasone Sodium Phosphate (Decadron Inj) 4 mg STK-MED ONCE IV ; Start at 12:00; Stop 07/11/17 at 13:10; Status DC Ondansetron HCl (Zofran Inj) 4 mg STK-MED ONCE IV PUSH ; Start 07/09/17 at 12: 00; Stop 07/11/17 at 13:10; Status DC Cefazolin Sodium (Ancef Inj) 1,000 mg STK-MED ONCE IV ; Start 07/09/17 at 12:00 ; Stop 07/11/17 at 13:10; Status DC Fentanyl Citrate (fentaNYL INJ) 100 mcg STK-MED ONCE IV ; Start 07/09/17 at 12: 00; Stop 07/11/17 at 13:10; Status DC Propofol (Diprivan 200 Mg/20 ml Inj) 200 mg STK-MED ONCE IV ; Start 07/09/17 at 12:00; Stop 07/11/17 at 13:10; Status DC Potassium Chloride (KCl) 60 meq ONCE ONCE PO Last administered on 07/12/17t 13:08; Start 07/12/17 at 11:45; Stop 07/12/17 at 11:50; Status DC Family History Noncontributory to current complaint. Social History Former smoker. Physical Exam Vital Signs Vital Signs Date Time Temp Pulse Resp B/P (MAP) Pulse Ox O2 Delivery O2 Flow Rate FiO2 07/12/17 16:00 96.1 83 16 123/67 (85) 93 07/12/17 14:00 18 07/12/17 12:00 96.6 89 16 100/57 (71) 94 07/12/17 09:30 92 Nasal Cannula 4.00 07/12/17 08:00 Nasal Cannula 2.00 07/12/17 08:00 96.3 67 16 126/67 (86) 94 07/12/17 06:00 20 07/12/17 04:00 96.6 76 20 139/74 (95) 93 07/12/17 00:00 97.4 83 20 137/65 (89) 94 07/11/17 21:14 20 07/11/17 21:06 94 Nasal Cannula 4.00 07/11/17 20:00 97.4 85 20 139/73 (95) 93 07/11/17 19:50 Nasal Cannula 2.00 Physical Exam GENERAL: Patient is thin and appears to be somewhat malnourished and frail. SKIN: Warm and dry. HEAD: Normocephalic. EYES: No scleral icterus. No injection or drainage. NECK: Supple, trachea midline. No JVD or lymphadenopathy. CARDIOVASCULAR: Regular rate and rhythm without murmurs, gallops, or rubs. RESPIRATORY: Breath sounds equal bilaterally. No accessory muscle use. GASTROINTESTINAL: Abdomen soft, non-tender, nondistended. MUSCULOSKELETAL: No cyanosis, or edema. Appears to be some wasting of the musculature of the limbs. BACK: Nontender without obvious deformity. No CVA tenderness. Laboratory Laboratory Tests Test 07/12/17 06:53 White Blood Count 10.7 Red Blood Count 4.13 Hemoglobin 14.0 Hematocrit 40.6 Mean Corpuscular Volume 98.2 Mean Corpuscular Hemoglobin 33.8 Mean Corpuscular Hemoglobin Concent 34.5 Red Cell Distribution Width 14.3 Platelet Count 238 Mean Platelet Volume 7.8 Blood Urea Nitrogen 2 Creatinine 0.29 Random Glucose 106 Calcium Level 8.4 Sodium Level 126 Potassium Level 2.9 Chloride Level 91 Carbon Dioxide Level 25.1 Anion Gap 10 Estimat Glomerular Filtration Rate 231 Vitamin B12 Level 1429 Folate 18.7 Result Diagram: 07/12/17 0653 07/12/17 0653 Imaging Last 48 hours Impressions Chest X-Ray 07/12/17 0000 Signed Impressions: Service Date/Time: June 16:32 - CONCLUSION: 1. Worsening consolidation within the left lower lobe with new tiny left effusion. Infectious etiology suspected. Mina Mann Jr., MD Assessment and Plan Problem List: (1) Acute hyponatremia ICD Codes: E87.1 - Hypo-osmolality and hyponatremia Status: Acute Plan: Acute on chronic hyponatremia. The acute component possibly related to multiple factors including stress exacerbating ADH secretion, poor nutritional intake recently resulting in a paucity of osmoles for free water excretion as well as intravenous fluids in the setting of previous probable SIADH. Proton pump inhibitor may possibly be contributory but less likely. Also patient does not have access to her sodium chloride pills presently. Check urine serum osmolality as well as cortisol level to screen for coexisting adrenal insufficiency. We'll defer resumption of Synthroid to primary care physician. Also will resume sodium chloride pills if patient diet continues to be advanced tomorrow. 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 Small cell carcinoma can be associated with SIADH but as mentioned above the patient has non-small cell metastatic cancer. Shade Coyle MD Jul 12, 2017 17:53
[2017-07-12 19:27] LABS: HEMATOCRIT 40.7 % (35.0-46.0); MEAN CELL VOLUME 98.2 FL (80.0-100.0); MEAN CORPUSCULAR HEMOGLOBIN 33.4 PG (27.0-34.0); PLATELET COUNT 241 TH/MM3 (150-450); RED BLOOD COUNT 4.14 MIL/MM3 (4.00-5.30); RED CELL DISTRIBUTION WIDTH 14.1 % (11.6-17.2); REVIEW FLAG FINAL; WHITE BLOOD COUNT 10.6 TH/MM3 (4.0-11.0)
[2017-07-12 19:37] LABS: BICARBONATE 26.3 MEQ/L (21.0-32.0); POTASSIUM 3.4 MEQ/L (3.5-5.1)
[2017-07-12] MEDS ORDERED: POTASSIUM CHLOR 20 MEQ PREMIX 100 ML IV ONE (20:30)
[2017-07-12] MEDS: FLUCONAZOLE 400 MG PREMIX BAG 200 ML IV SCH (22:47)
[2017-07-13] VITALS (7 sets, daily range): BP systolic 111–131; BP diastolic 64–74; PULSE 71–85; RESP 16–17; TEMP 95.6–98.4; O2SAT 92–97
[2017-07-13] MEDS: RESP: ALBUTEROL 2.5 MG/IPRATROPIUM 0.5 MG NEB (SCH) NEB ×4 (04:27→21:17)
[2017-07-13 06:24] LABS: BICARBONATE 24.3 MEQ/L (21.0-32.0); MAGNESIUM 1.5 MG/DL (1.5-2.5); POTASSIUM 3.1 MEQ/L (3.5-5.1)
[2017-07-13 06:36] LABS: CORTISOL 22.7 MCG/DL
--- NOTE | 2017-07-13 07:13 | HHI.PR ---
Subjective Remarks Patient alert and oriented. Participated in PT yesterday. Not using FUSE COILER secondary to making her nauseated. Objective Vital Signs Date Time Temp Pulse Resp B/P (MAP) Pulse Ox O2 Delivery O2 Flow Rate FiO2 07/13/17 04:54 97.3 77 16 129/74 (92) 92 07/13/17 00:27 98.0 79 16 114/69 (84) 95 07/12/17 22:00 17 07/12/17 21:58 Nasal Cannula 2.00 07/12/17 21:00 Nasal Cannula 2.00 Humidified 07/12/17 20:00 96.6 78 16 118/68 (85) 92 07/12/17 16:00 96.1 83 16 123/67 (85) 93 07/12/17 14:00 18 07/12/17 12:00 96.6 89 16 100/57 (71) 94 07/12/17 09:30 92 Nasal Cannula 4.00 07/12/17 08:00 Nasal Cannula 2.00 07/12/17 08:00 96.3 67 16 126/67 (86) 94 I/O 07/12/17 07/12/17 07/12/17 07/13/17 07/13/17 07/13/17 07:00 15:00 23:00 07:00 15:00 23:00 Intake Total 0 ml 600 ml 779 ml Output Total 3025 ml 30 ml 80 ml 1570 ml Balance -3025 ml -30 ml 520 ml -791 ml Intake Oral 0 ml 0 ml IV Total 600 ml 779 ml Output Urine Total 3025 ml 1500 ml Drainage Total 30 ml 80 ml 70 ml # Voids 4 # Bowel Movements 0 0 Result Diagram: 07/12/17 1837 07/13/17 0452 Procedures 07/09/17 Exploratory laparotomy, Over-sew of gastric ulcer with Edvin patch, Excision liver nodule for biopsy. Objective Remarks GENERAL: Alert and oriented SKIN: Warm and dry. Abdominal drg dry and intact. HEAD: Normocephalic. EYES: No scleral icterus. No injection or drainage. NECK: Supple, trachea midline. No JVD or lymphadenopathy. CARDIOVASCULAR: Regular rate and rhythm without murmurs, gallops, or rubs. RESPIRATORY: Breath sounds equal bilaterally. No accessory muscle use. GASTROINTESTINAL: Abdomen soft, non-tender, nondistended. MUSCULOSKELETAL: No cyanosis, or edema. BACK: Nontender without obvious deformity. No CVA tenderness. Medications and IVs Current Medications Medications (Trade) Dose Ordered Sig/Salvatore Route Start Time Stop Time Status Last Admin Potassium Chloride/Dextrose/ Sod Cl 1,000 ml @ 50 mls/hr Q20H IV 07/09/17 22:49 07/12/17 13:09 (NS Flush) 2 ml UNSCH PRN IVF 07/09/17 23:00 (NS Flush) 2 ml BID IVF 07/10/17 09:00 07/11/17 21:00 (Zofran Inj) 4 mg Q4H PRN IV PUSH 07/09/17 23:00 07/12/17 04:27 (Narcan Inj) 0.4 mg UNSCH PRN IV PUSH 07/09/17 23:00 (Benadryl Inj) 25 mg Q6H PRN IV PUSH 07/09/17 23:00 (Morphine 1 Mg/ ml FUSE COILER) 30 mg UNSCH IV 07/09/17 23:00 07/10/17 10:42 FUSE COILER Dosage Infused (Pha) 1 Q8HR .XX 07/10/17 06:00 07/12/17 22:00 Levofloxacin/ Dextrose 100 ml @ 100 mls/hr Q24H IV 07/10/17 18:00 07/12/17 17:04 Fluconazole/ Sodium Chloride 200 ml @ 100 mls/hr Q24H IV 07/09/17 23:00 07/12/17 22:47 Propofol 100 ml @ 1.53 mls/hr TITRATE PRN IV 07/09/17 23:30 07/10/17 03:50 Fentanyl Citrate 250 ml @ 5 mls/hr TITRATE PRN IV 07/09/17 23:45 07/10/17 00:30 (Duoneb Neb) 1 ampule Q6HR NEB NEB 07/10/17 05:30 07/10/17 09:04 (Duoneb Neb) 1 ampule Q2HR NEB PRN NEB 07/10/17 05:30 (Protonix Inj) 40 mg Q12H IV PUSH 07/11/17 09:00 07/12/17 21:10 Assessment and Plan Problem List: (1) COPD (chronic obstructive pulmonary disease) ICD Codes: J44.9 - Chronic obstructive pulmonary disease, unspecified (2) Bowel perforation ICD Codes: K63.1 - Perforation of intestine (nontraumatic) Status: Acute (3) Lung cancer ICD Codes: C34.90 - Malignant neoplasm of unspecified part of unspecified bronchus or lung Assessment and Plan 07/10/17 Perforated viscus: s/p edvin patch repair. On levaquin, flagyl and fluconazole. NG tube present. Dressing is D+I pain well controlled. COPD: No SOB noted. On DuoNEB as needed Stage IV lung cancer: Oncologist Dr. Brody. Multiple liver nodules noted during surgery biopsy performed Elevated AST/ALT: Improving will monitor Labs in AM GI prophylaxis- pantoprazole DVT : SCDs 07/11/17 Perforated viscus: s/p edvin patch repair. On antibiotics has remained afebrile. NG tube present. Dressing is D+I complaining of pain encouraged to to FUSE COILER. PT ordered. COPD: No SOB noted. On DuoNEB as needed Stage IV lung cancer: Oncologist Dr. Brody. Multiple liver nodules noted during surgery biopsy performed GERD: Gastric ulcer. Protonix BID HTN: Blood pressure elevated this morning however isolated may be related to pain will monitor. 07/12/17 Perforated viscus: NG tube removed per surgery today. Clear liquid diet started. Complaining of feeling nauseated most likely related to pain medication. On Protonix BID will monitor. COPD: No SOB noted however Oxygen increased to 4 liters with sat at 92% will order chest Xray. Lung sounds diminished. IS encouraged and activity. Patient has remained afebrile with WBC 10.7 Hypokalemia: k 2.9 IV replacement given. Recheck ordered 2 hours after replacement completed Hyponatremia: Sodium is 126. Nephrology consulted for recommendations Lung cancer: Liver biopsy positive for metastatic disease. Surgery discussed with oncologist. 07/13/17 Perforated viscus; NG tube removed yesterday tolerated clear liquid diet. Positive bowel sounds this morning Hypokalemia: k 3.1 today 40 MEQ IV given Hyponatremia; NA at 126. Nephrology consulted most likely per note SIADH COPD: Some consolidation on left lower lobe noted. On Levaquin. Will continue to monitor. Patient has remained Afebrile. Labs in AM I and the [facility] have both examined this patient and reviewed this note and I agree with these findings and plan of care. Lisa Guy M. FLANGE TURNER Jul 13, 2017 07:13
[2017-07-13] MEDS: POTASSIUM CHLOR 20 MEQ PREMIX 100 ML IV SCH ×3 (08:43→17:44)
[2017-07-13] MEDS: SODIUM CHLORIDE 0.9% FLUSH 5 ML FLUSH IVF SCH ×2 (08:44→21:35)
[2017-07-13] MEDS: PANTOPRAZOLE SODIUM 40 MG VIAL IV PUSH SCH (08:44)
--- NOTE | 2017-07-13 13:06 | HHI.NPPN ---
Subjective History of Present Illness 66-year-old very pleasant female with a history of metastatic non-small cell carcinoma. She indicated to me that she has not been on chemotherapy for a number of years. She also stated that she did have a history of hyponatremia predating this admission which was evaluated by her primary care physician. She was taking salt pills initially subsequently discontinuing same but she was advised to resume them by her oncologist 1 g twice a day. Patient was admitted to this institution with a history of abdominal pain subsequently on imaging studies have free air in the abdomen and underwent laparotomy and found to have a perforated gastric ulcer. Sodium level on presentation 130. She has been nothing by mouth and has been unable to take her salt pills. Interval History Patient apparently tolerating clear liquids. Otherwise no verbal complaints. Review of Systems General Constitutional: Fatigue Objective Data Data Vital Signs Date Time Temp Pulse Resp B/P (MAP) Pulse Ox O2 Delivery O2 Flow Rate FiO2 07/13/17 12:00 95.6 71 16 125/64 (84) 95 07/13/17 08:00 93 Nasal Cannula 2.00 07/13/17 08:00 98.4 72 16 118/65 (82) 92 07/13/17 04:54 97.3 77 16 129/74 (92) 92 07/13/17 00:27 98.0 79 16 114/69 (84) 95 07/12/17 22:00 17 07/12/17 21:58 Nasal Cannula 2.00 07/12/17 21:00 Nasal Cannula 2.00 Humidified 07/12/17 20:00 96.6 78 16 118/68 (85) 92 07/12/17 16:00 96.1 83 16 123/67 (85) 93 07/12/17 14:00 18 -: 07/12/17 1837 07/13/17 0452 Physical Exam General Appearance: No Acute Distress, Comfortable, Malnourished Eyes Eye Exam: Sclera White Neck Neck Exam: Trachea Midline Pulmonary Resp Exam: Clear Bilaterally, Breath Sounds Equal, No Distress Cardiology CV Exam: Regular, Normal Sinus Rhythm Gastrointestinal/Abdomen GI Exam: Soft, Non-Distended Neurologic Neuro Exam: Alert, Awake, Speech Clear, Moving All Extremities Psychiatric Psych Exam: Appropriate Responses Assessment/Plan Discussed Condition With: Patient Problem List: (1) Acute hyponatremia ICD Codes: E87.1 - Hypo-osmolality and hyponatremia Status: Acute Plan: Acute on chronic hyponatremia. The acute component possibly related to multiple factors including stress exacerbating ADH secretion, poor nutritional intake recently resulting in a paucity of osmoles for free water excretion as well as intravenous fluids in the setting of previous probable SIADH. Proton pump inhibitor may possibly be contributory but less likely. Patient tolerating by mouth diet thus far. She is concerned however regarding taking sodium chloride pills immediately as it may upset his stomach. She is agreeable however to take a dose of Samsca. I will follow up sodium level later today. No fluid restriction should be at the present time with Samsca. As diet is advanced I will try to resume sodium chloride pills. 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 Small cell carcinoma can be associated with SIADH but as mentioned above the patient has non-small cell metastatic cancer. Shade Coyle MD Jul 13, 2017 13:06
[2017-07-13] MEDS ORDERED: MAGNESIUM SULFATE 1 GM PREMIX 100 ML IV ONE (14:00)
--- NOTE | 2017-07-13 14:17 | HHI.PR ---
Subjective Subjective Notes feels better, wants food, no N/V, passing flatus, no BM yet Objective Vitals/I&O Vital Signs Date Time Temp Pulse Resp B/P (MAP) Pulse Ox O2 Delivery O2 Flow Rate FiO2 07/13/17 12:00 95.6 71 16 125/64 (84) 95 07/13/17 08:00 Nasal Cannula 2.00 07/10/17 06:50 40 Labs Laboratory Tests Test 07/12/17 18:37 07/12/17 21:23 07/13/17 04:52 White Blood Count 10.6 Red Blood Count 4.14 Hemoglobin 13.8 Hematocrit 40.7 Mean Corpuscular Volume 98.2 Mean Corpuscular Hemoglobin 33.4 Mean Corpuscular Hemoglobin Concent 34.0 Red Cell Distribution Width 14.1 Platelet Count 241 Mean Platelet Volume 7.7 Blood Urea Nitrogen 3 3 Creatinine 0.38 0.28 Random Glucose 102 95 Calcium Level 8.7 8.5 Sodium Level 127 126 Potassium Level 3.4 3.1 Chloride Level 93 93 Carbon Dioxide Level 26.3 24.3 Anion Gap 8 9 Estimat Glomerular Filtration Rate 169 240 Urine Osmolality 359 Urine Random Sodium 121 Albumin 2.3 Phosphorus Level 2.0 Magnesium Level 1.5 Serum Osmolality 260 Random Cortisol 22.7 Cardiovascular: Regular Lungs: Clear Abdomen: Non-distended, BS normal Narrative Exam drain with serosanginous fluid. Wound Wound : Wound Location: Abdomen Appearance: Clean & Dry Dressing: Dry A/P Assessment and Plan POD4 perf ulcer advance to regular diet change to po abx and anti-fungals path confirms metastatic lung ca in liver, i have not dw pt yet. i called dr yu and he is aware. 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 i told patient i would remove drain in office sunday. dr herrera on sunday, dr higgins on sunday. please call them with any questions or concerns DC with po levaquin and diflucan, protonix for ulcer. thanks! Patrick Núñez MD Jul 13, 2017 14:17
[2017-07-13] MEDS ORDERED: TOLVAPTAN 15 MG TAB PO ONE (15:00)
[2017-07-13 20:30] LABS: BICARBONATE 26.2 MEQ/L (21.0-32.0); POTASSIUM 3.2 MEQ/L (3.5-5.1)
[2017-07-13] MEDS: POTASSIUM CHLORIDE 10 MEQ CONTROLLED RELEASE TAB PO SCH (21:34)
[2017-07-14 00:15] VITALS: BP 99/61; PULSE 81; RESP 16; TEMP 97.8; O2SAT 97
[2017-07-14] MEDS: RESP: ALBUTEROL 2.5 MG/IPRATROPIUM 0.5 MG NEB (SCH) NEB (03:41)
[2017-07-14 08:00] VITALS: BP 92/64; PULSE 87; RESP 18; TEMP 95.4; O2SAT 94
[2017-07-14] MEDS: POTASSIUM CHLORIDE 10 MEQ CONTROLLED RELEASE TAB PO SCH (08:57)
[2017-07-14] MEDS: LEVOFLOXACIN 500 MG TAB PO SCH (08:57)
[2017-07-14] MEDS: FLUCONAZOLE 200 MG TAB PO SCH (08:57)
[2017-07-14] MEDS: SODIUM CHLORIDE 0.9% FLUSH 5 ML FLUSH IVF SCH ×2 (08:58→20:04)
[2017-07-14 12:00] VITALS: BP 125/71; PULSE 78; RESP 17; TEMP 95.7; O2SAT 97
--- NOTE | 2017-07-14 13:48 | HHI.PR ---
Subjective Remarks Patient alert and oriented. Ambulating in room with walker. Gait is steady. Patient is interested in being discharged home. Does not want [facility] and will refuse. Objective Vital Signs Date Time Temp Pulse Resp B/P (MAP) Pulse Ox O2 Delivery O2 Flow Rate FiO2 07/14/17 12:00 95.7 78 17 125/71 (89) 97 07/14/17 08:00 95.4 87 18 92/64 (73) 94 07/14/17 00:15 97.8 81 16 99/61 (74) 97 07/13/17 20:00 98.1 74 16 111/68 (82) 96 07/13/17 16:00 97.5 85 17 131/72 (91) 95 07/13/17 15:57 97 Nasal Cannula 2.00 I/O 07/13/17 07/13/17 07/13/17 07/14/17 07/14/17 07/14/17 07:00 15:00 23:00 07:00 15:00 23:00 Intake Total 779 ml 100 ml 500 ml Output Total 1570 ml 30 ml 1590 ml Balance -791 ml 100 ml 470 ml -1590 ml Intake Oral 400 ml IV Total 779 ml 100 ml 100 ml Output Urine Total 1500 ml 1550 ml Drainage Total 70 ml 30 ml 40 ml # Voids 5 # Bowel Movements 0 Result Diagram: 07/12/177 07/13/171957 Procedures 07/09/17 Exploratory laparotomy, Over-sew of gastric ulcer with Edvin patch, Excision liver nodule for biopsy. Objective Remarks GENERAL: Alert and oriented SKIN: Warm and dry. Abdominal drg dry and intact. HEAD: Normocephalic. EYES: No scleral icterus. No injection or drainage. NECK: Supple, trachea midline. No JVD or lymphadenopathy. CARDIOVASCULAR: Regular rate and rhythm without murmurs, gallops, or rubs. RESPIRATORY: Breath sounds equal bilaterally. No accessory muscle use. GASTROINTESTINAL: Abdomen soft, non-tender, nondistended. MUSCULOSKELETAL: No cyanosis, or edema. BACK: Nontender without obvious deformity. No CVA tenderness. Medications and IVs Current Medications Medications (Trade) Dose Ordered Sig/Salvatore Route Start Time Stop Time Status Last Admin (NS Flush) 2 ml UNSCH PRN IVF 07/09/17 23:00 (NS Flush) 2 ml BID IVF 07/10/17 09:00 07/14/17 08:58 (Zofran Inj) 4 mg Q4H PRN IV PUSH 07/09/17 23:00 07/12/17 04:27 Propofol 100 ml @ 1.53 mls/hr TITRATE PRN IV 07/09/17 23:30 07/10/17 03:50 Fentanyl Citrate 250 ml @ 5 mls/hr TITRATE PRN IV 07/09/17 23:45 07/10/17 00:30 (Duoneb Neb) 1 ampule Q2HR NEB PRN NEB 07/10/17 05:30 (Levaquin) 500 mg DAILY PO 07/14/17 09:00 07/14/17 08:57 (Diflucan) 200 mg DAILY PO 07/14/17 09:00 07/14/17 08:57 (KCl) 40 meq Q12HR PO 07/14/17 21:00 Assessment and Plan Problem List: (1) COPD (chronic obstructive pulmonary disease) ICD Codes: J44.9 - Chronic obstructive pulmonary disease, unspecified (2) Bowel perforation ICD Codes: K63.1 - Perforation of intestine (nontraumatic) Status: Acute (3) Lung cancer ICD Codes: C34.90 - Malignant neoplasm of unspecified part of unspecified bronchus or lung Assessment and Plan 07/10/17 Perforated viscus: s/p edvin patch repair. On levaquin, flagyl and fluconazole. NG tube present. Dressing is D+I pain well controlled. COPD: No SOB noted. On DuoNEB as needed Stage IV lung cancer: Oncologist Dr. Brody. Multiple liver nodules noted during surgery biopsy performed Elevated AST/ALT: Improving will monitor Labs in AM GI prophylaxis- pantoprazole DVT : SCDs 07/11/17 Perforated viscus: s/p edvin patch repair. On antibiotics has remained afebrile. NG tube present. Dressing is D+I complaining of pain encouraged to to [employer]. PT ordered. COPD: No SOB noted. On DuoNEB as needed Stage IV lung cancer: Oncologist Dr. Brody. Multiple liver nodules noted during surgery biopsy performed GERD: Gastric ulcer. Protonix BID HTN: Blood pressure elevated this morning however isolated may be related to pain will monitor. 07/12/17 Perforated viscus: NG tube removed per surgery today. Clear liquid diet started. Complaining of feeling nauseated most likely related to pain medication. On Protonix BID will monitor. COPD: No SOB noted however Oxygen increased to 4 liters with sat at 92% will order chest Xray. Lung sounds diminished. IS encouraged and activity. Patient has remained afebrile with WBC 10.7 Hypokalemia: k 2.9 IV replacement given. Recheck ordered 2 hours after replacement completed Hyponatremia: Sodium is 126. Nephrology consulted for recommendations Lung cancer: Liver biopsy positive for metastatic disease. Surgery discussed with oncologist. 07/13/17 Perforated viscus; NG tube removed yesterday tolerated clear liquid diet. Positive bowel sounds this morning Hypokalemia: k 3.1 today 40 MEQ IV given Hyponatremia; NA at 126. Nephrology consulted most likely per note SIADH COPD: Some consolidation on left lower lobe noted. On Levaquin. Will continue to monitor. Patient has remained Afebrile. Labs in AM 07/14/17 Perforated viscus: Patient is tolerating regular diet. Denies any nausea or vomiting. Positive BM. Antibiotics changed to PO. Ambulating in room well Hypokalmemia; k 3.2 on replacement increased. Hyponatremia: Na increased to 136 today from 126. One dose of samsca given will need to follow outpatient. Patient wants to go home will get surgery clearance. On oral antibiotics will need to have stop date. Will plan on tomorrow if cleared per surgery. Does not want [facility] and will refuse if ordered. I and the COMPUTER ART INSTRUCTOR have both examined this patient and reviewed this note and I agree with these findings and plan of care. Albino Lewis DO Discussed Condition With Nursing Discharge Planning Home Lisa Blount COMPUTER ART INSTRUCTOR Jul 14, 2017 13:48
--- NOTE | 2017-07-14 13:49 | HHI.NPPN ---
Subjective History of Present Illness 66-year-old very pleasant female with a history of metastatic non-small cell carcinoma. She indicated to me that she has not been on chemotherapy for a number of years. She also stated that she did have a history of hyponatremia predating this admission which was evaluated by her primary care physician. She was taking salt pills initially subsequently discontinuing same but she was advised to resume them by her oncologist 1 g twice a day. Patient was admitted to this institution with a history of abdominal pain subsequently on imaging studies have free air in the abdomen and underwent laparotomy and found to have a perforated gastric ulcer. Sodium level on presentation 130. She has been nothing by mouth and has been unable to take her salt pills. Interval History Pt feeling much better today. Wants to go home No further nausea. (Soledad Faye) Review of Systems General Constitutional: Fatigue (Soledad Faye) Objective Data Data Vital Signs Date Time Temp Pulse Resp B/P (MAP) Pulse Ox O2 Delivery O2 Flow Rate FiO2 07/14/17 12:00 95.7 78 17 125/71 (89) 97 07/14/17 08:00 95.4 87 18 92/64 (73) 94 07/14/17 00:15 97.8 81 16 99/61 (74) 97 07/13/17 20:00 98.1 74 16 111/68 (82) 96 07/13/17 16:00 97.5 85 17 131/72 (91) 95 07/13/17 15:57 97 Nasal Cannula 2.00 (Soledad Faye) -: 07/12/17 1837 07/13/17 1958 Imaging Last Impressions Chest X-Ray 07/12/17 0000 Signed Impressions: Service Date/Time: June 16:32 - CONCLUSION: 1. Worsening consolidation within the left lower lobe with new tiny left effusion. Infectious etiology suspected. Mina Mann Jr., MD Abdomen/Pelvis CT 07/09/17 1644 Signed Impressions: Service Date/Time: Sunday, July 09, 2017 18:01 - CONCLUSION: Pneumoperitoneum and free peritoneal fluid worrisome for bowel perforation. Multiple low density liver lesions consistent with metastatic disease. Galileo Macedo MD Medication Review Current Medications Medications (Trade) Dose Ordered Sig/Salvatore Route Start Time Stop Time Status Last Admin (NS Flush) 2 ml UNSCH PRN IVF 07/09/17 23:00 (NS Flush) 2 ml BID IVF 07/10/17 09:00 07/14/17 08:58 (Zofran Inj) 4 mg Q4H PRN IV PUSH 07/09/17 23:00 07/12/17 04:27 Propofol 100 ml @ 1.53 mls/hr TITRATE PRN IV 07/09/17 23:30 07/10/17 03:50 Fentanyl Citrate 250 ml @ 5 mls/hr TITRATE PRN IV 07/09/17 23:45 07/10/17 00:30 (Duoneb Neb) 1 ampule Q2HR NEB PRN NEB 07/10/17 05:30 (Levaquin) 500 mg DAILY PO 07/14/17 09:00 07/14/17 08:57 (Diflucan) 200 mg DAILY PO 07/14/17 09:00 07/14/17 08:57 (KCl) 40 meq Q12HR PO 07/14/17 21:00 (Soledad Faye PA) Physical Exam General Appearance: No Acute Distress, Comfortable, Malnourished (Soledad Faye PA) Eyes Eye Exam: Sclera White (Soledad Faye) Neck Neck Exam: Trachea Midline (Soledad Faye) Pulmonary Resp Exam: Clear Bilaterally, Breath Sounds Equal, No Distress (Soledad Faye PA) Cardiology CV Exam: Regular, Normal Sinus Rhythm (Soledad Faye) Gastrointestinal/Abdomen GI Exam: Soft, Non-Distended (Soledad Faye) Neurologic Neuro Exam: Alert, Awake, Speech Clear, Moving All Extremities (Soledad Faye) Psychiatric Psych Exam: Appropriate Responses (Soledad Faye) Assessment/Plan Discussed Condition With: Patient Problem List: (1) Acute hyponatremia ICD Codes: E87.1 - Hypo-osmolality and hyponatremia Status: Acute Plan: Acute on chronic hyponatremia. The acute component possibly related to multiple factors including stress exacerbating ADH secretion, poor nutritional intake recently resulting in a paucity of osmoles for free water excretion as well as intravenous fluids in the setting of previous probable SIADH. Proton pump inhibitor may possibly be contributory but less likely. Na levels improved with Samsca. Would be OK to resume her NaCl tablets today at 1g TID. Pt asking about going home. Would be OK from renal standpoint. Would recommend BMP in 1 week post- discharge. 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 Small cell carcinoma can be associated with SIADH but as mentioned above the patient has non-small cell metastatic cancer. (Soledad Faye) Plan The exam, history, and the medical decision-making described in the above note were completed with the assistance of the ANTON. I reviewed and agree with the findings presented. (Shade Coyle MD) Soledad Faye Jul 14, 2017 13:49 Shade Coyle MD Jul 14, 2017 15:29
[2017-07-14 16:00] VITALS: BP 118/67; PULSE 64; RESP 17; TEMP 97; O2SAT 97
[2017-07-14 20:00] VITALS: BP 130/76; PULSE 75; RESP 22; TEMP 96.6; O2SAT 97
[2017-07-14] MEDS: POTASSIUM CHLORIDE 20 MEQ CONTROLLED RELEASE TAB PO SCH (20:04)
[2017-07-14 21:34] VITALS: O2SAT 97
[2017-07-15] VITALS: BP 129/68; PULSE 73; RESP 20; TEMP 97.2; O2SAT 95
[2017-07-15 08:00] VITALS: BP 116/70; PULSE 74; RESP 17; TEMP 97.4; O2SAT 96
[2017-07-15] MEDS: LEVOFLOXACIN 500 MG TAB PO SCH (08:15)
[2017-07-15] MEDS: SODIUM CHLORIDE 1 GRAM TAB PO SCH ×2 (08:15→13:07)
[2017-07-15] MEDS: FLUCONAZOLE 200 MG TAB PO SCH (08:15)
[2017-07-15 08:16] LABS: BICARBONATE 22.4 MEQ/L (21.0-32.0); POTASSIUM 3.7 MEQ/L (3.5-5.1)
[2017-07-15] MEDS: POTASSIUM CHLORIDE 20 MEQ CONTROLLED RELEASE TAB PO SCH (08:16)
[2017-07-15] MEDS: SODIUM CHLORIDE 0.9% FLUSH 5 ML FLUSH IVF SCH (08:17)
[2017-07-15 12:00] VITALS: BP 184/70; PULSE 86; RESP 17; TEMP 96.8; O2SAT 96
[2017-07-15 12:46] VITALS: O2SAT 96
[2017-07-15] MEDS ORDERED: LEVA500T20 PO (13:25)
[2017-07-15] MEDS ORDERED: PROT40TA PO (13:25)
[2017-07-15] MEDS ORDERED: POTA20TA5 PO (13:25)
[2017-07-15] MEDS ORDERED: DIFL200T PO (13:25)
[2017-07-15] MEDS ORDERED: SODI1TAB PO (13:25)
--- NOTE | 2017-07-15 13:37 | HHI.DS ---
Discharge Summary Admission Date Jul 09, 2017 at 18:59 Admitting Diagnosis perforated bowel Procedures 07/09/17 Exploratory laparotomy, Over-sew of gastric ulcer with Edvin patch, Excision liver nodule for biopsy. Brief History Patient is a 66-year-old female who presented to ER with abdominal pain for 2 hours prior to admission and on CAT scan of the abdomen and pelvis performed was significant for pneumoperitoneum, mainly in the upper abdomen. She was taken emergently to the operating room for exploratory laparotomy, over-sew of gastric ulcer with edvin patch and excision liver nodule for biopsy. Patient has past medical history of lung cancer followed by Dr. Brody last chemotherapy per patient over a year ago and OA. CBC/BMP: 07/12/17 1837 07/15/17 0652 Significant Findings Laboratory Tests Test 07/12/17 18:37 07/12/17 21:23 07/13/17 04:52 07/13/17 19:58 Blood Urea Nitrogen 3 MG/DL (7-18) 3 MG/DL (7-18) 5 MG/DL (7-18) Creatinine 0.38 MG/DL (0.50-1.00) 0.28 MG/DL (0.50-1.00) 0.48 MG/DL (0.50-1.00) Sodium Level 127 MEQ/L (136-145) 126 MEQ/L (136-145) Potassium Level 3.4 MEQ/L (3.5-5.1) 3.1 MEQ/L (3.5-5.1) 3.2 MEQ/L (3.5-5.1) Chloride Level 93 MEQ/L (98-107) 93 MEQ/L (98-107) Albumin 2.3 GM/DL (3.4-5.0) Phosphorus Level 2.0 MG/DL (2.5-4.9) Serum Osmolality 260 MOSM/KG (275-295) Random Glucose 107 MG/DL (74-106) Test 07/15/17 06:52 Albumin 3.0 GM/DL (3.4-5.0) Sodium Level 130 MEQ/L (136-145) PE at Discharge GENERAL: Alert and oriented SKIN: Warm and dry. Abdominal drg dry and intact. ARTURO present HEAD: Normocephalic. EYES: No scleral icterus. No injection or drainage. NECK: Supple, trachea midline. No JVD or lymphadenopathy. CARDIOVASCULAR: Regular rate and rhythm without murmurs, gallops, or rubs. RESPIRATORY: Breath sounds equal bilaterally. No accessory muscle use. GASTROINTESTINAL: Abdomen soft, non-tender, nondistended. MUSCULOSKELETAL: No cyanosis, or edema. BACK: Nontender without obvious deformity. No CVA tenderness. Hospital Course Patient is a 66-year-old female who presented to ER with abdominal pain for 2 hours prior to admission and on CAT scan of the abdomen and pelvis performed was significant for pneumoperitoneum, mainly in the upper abdomen. She was taken emergently to the operating room for exploratory laparotomy, over-sew of gastric ulcer with edvin patch and excision liver nodule for biopsy. Patient has past medical history of lung cancer followed by Dr. Brody last chemotherapy per patient over a year ago and OA. Patient is tolerating a regular diet and has had a BM. Staple incision is WNL. ARTURO drain present in left lower abdomen with minimal drainage. Per Dr. Núñez's note to be pulled in office on Sunday. Her hospitalization was complicated by hyponatremia which is chronic for patient and she is asympotomatic. She was seen by hematology during her stay and 1 dose of samsca ordered with good improvement. She is discharged on sodium chloride tabs. Recommended to be discharge home with [facility] however Patient has refused. She is discharged on oral antibiotics and PPI and encouraged to follow up with Dr. Núñez on Sunday and Dr. Brody on . Also instructed to follow up with Primary care provider for chronic Hyponatremia. Labs to drawn in 1 week. Patient is ambulating well in room with walker. Pt Condition on Discharge: Good Discharge Disposition: Discharge Home Discharge Instructions DIET: Follow Instructions for: As Tolerated, No Restrictions Activities you can perform: Regular-No Restrictions Follow up Referrals: Appointment for Follow Up @ Dr. Núñez Appointment for Follow Up PCP Follow-up @ [facility] New Orders: BASIC METABOLIC PROF - 1 Week CBC NO DIFF - 1 Week New Medications: Pantoprazole (Protonix) 40 Mg Tab 40 MG PO DAILY for Ulcer Prevention, #30 TAB 0 Refills Fluconazole (Diflucan) 200 Mg Tab 200 MG PO DAILY for Infection for 10 Days, #10 TAB Levofloxacin (Levaquin) 500 Mg Tablet 500 MG PO DAILY for Infection for 10 Days, #10 TAB Potassium Chloride Microencaps (Potassium Chloride Microencaps) 20 Meq Tab 40 MEQ PO Q12HR for Electrolyte Replacement for 7 Days, #14 TAB Sodium Chloride (Sodium Chloride) 1 Gram Tab 1 GM PO TID for Electrolyte Replacement for 10 Days, #30 TAB Discontinued Medications: Clindamycin Hcl (Clindamycin Hcl) 150 Mg Cap 150 MG PO ONCE, CAP Sodium Chloride (Sodium Chloride 1000 Mg Tab) 1 Gm Tab 1 GM PO DAILY, TAB Tramadol HCl (Ultram) 50 Mg Tab 50 MG .ROUTE Q4H PRN for PAIN SCALE 1 TO 5, TAB Lisa Blount Jul 15, 2017 13:37
== END 2017-07-15 14:20 | disposition home or self-care (01) | DRG 326 ==
LOC: PHED 16:25 → PHEDA 18:59 → HPAC 20:35 → N03A 07-10 02:16 → N07B 07-11 18:02
PROVIDERS: ADMIT Family Medicine; ATTEND Family Medicine
PROC: 5A1935Z Respiratory Ventilation, Less than 24 Consecutive Hours (ICD-10-PCS; 2017-07-09)
PROC: 0DU607Z Supplement Stomach with Autologous Tissue Substitute, Open Approach (ICD-10-PCS; 2017-07-09)
PROC: 0FB20ZX Excision of Left Lobe Liver, Open Approach, Diagnostic (ICD-10-PCS; 2017-07-09)
PROC: 0DQ60ZZ Repair Stomach, Open Approach (ICD-10-PCS; principal; 2017-07-09 21:56)
DX: K25.5 Chronic or unspecified gastric ulcer with perforation (principal); J95.821 Acute postprocedural respiratory failure; J44.9 Chronic obstructive pulmonary disease, unspecified; C34.90 Malignant neoplasm of unspecified part of unspecified bronchus or lung; C78.7 Secondary malignant neoplasm of liver and intrahepatic bile duct; E22.2 Syndrome of inappropriate secretion of antidiuretic hormone; E03.9 Hypothyroidism, unspecified; E87.6 Hypokalemia; K21.9 Gastro-esophageal reflux disease without esophagitis; Z85.820 Personal history of malignant melanoma of skin; Z92.21 Personal history of antineoplastic chemotherapy; Z92.3 Personal history of irradiation; Z87.891 Personal history of nicotine dependence; Z85.828 Personal history of other malignant neoplasm of skin; Z88.1 Allergy status to other antibiotic agents; Z88.0 Allergy status to penicillin
CPT/HCPCS: 36600; 71010; 74177; 80048; 80053; 80069; 82533; 82607; 82746; 82805; 82948; 83690; 83735; 83930; 83935; 84300; 84443; 85025; 85027; 85610; 85730; 86850; 86900; 86901; 87641; 88307; 93005; 94002; 94003; 94150; 94640; 94664; 96374; 96375; C9113; J0330; J0690; J1100; J1450; J1956; J2250; J2270; J2370; J2405; J3010; J3475; J3480; J7030; J7120; Q9967

== ENCOUNTER 2017-09-11 10:47 | Inpatient (IN) | payer MEDICARE ==
[~2017-09-11] VITALS: Ht 162.6 cm; Wt 49.0 kg
[2017-09-11] VITALS (7 sets, daily range): BP systolic 118–129; BP diastolic 67–73; PULSE 81–98; RESP 17–21; TEMP 97.3–97.7; O2SAT 96–99
[~2017-09-11 10:47] MED LIST changes: -CLIN1CAP5 PO; -DEXAMETHASONE SOD PHOS 4 MG/ML VIAL IV ONE; +DIFL200T PO; +LEVA500T33 PO; -LIDOCAINE HCL 1% PF 5 ML AMPULE OTHER ONE; -MIDAZOLAM HCL 2 MG/2 ML VIAL IV ONE; -ONDANSETRON HCL 4 MG/2 ML VIAL IV PUSH ONE; -PHENYLEPH/NS 1000 MCG/10 ML SYR IV ONE; +POTA20TA5 PO; -PROPOFOL 200 MG/20 ML AMP IV ONE; +PROT40TA PO; -ROCURONIUM INJ 50 MG/5 ML SYRINGE IV PUSH ONE; -SODI1 PO; +SODI1TAB PO; -SUCCINYLCHOLINE CHLORIDE 100 MG/5 ML SYRINGE IV PUSH ONE; -ULTR50TA; -ceFAZolin INJ 1,000 MG VIAL IV ONE
[2017-09-11] MEDS ORDERED: SODIUM CHLOR 0.9% 1000 ML INJ 1,000 ML IV SCH ×2 (10:57→16:00)
[2017-09-11] MEDS ORDERED: SODIUM CHLORIDE 0.9% FLUSH 10 ML FLUSH IV FLUSH PRN ×2 (11:00→15:15)
[2017-09-11 11:43] LABS: AUTOMATED NEUTROPHIL # 10.7 TH/MM3 (1.8-7.7); BASOPHIL # 0.1 TH/MM3 (0-0.2); BASOPHIL % 0.4 % (0.0-2.0); EOSINOPHIL % 0.1 % (0.0-4.0); HEMATOCRIT 42.5 % (35.0-46.0); HEMOGLOBIN 14.4 GM/DL (11.6-15.3); LYMPH % 7.3 % (9.0-44.0); LYMPHOCYTE # 0.9 TH/MM3 (1.0-4.8); MEAN CELL VOLUME 97.9 FL (80.0-100.0); MEAN CORPUSCULAR HEMOGLOBIN 33.2 PG (27.0-34.0); MEAN CORPUSCULAR HGB CONC 33.9 % (32.0-36.0); MEAN PLATELET VOLUME 8.1 FL (7.0-11.0); MONO % 5.9 % (0.0-8.0); MONOCYTE # 0.7 TH/MM3 (0-0.9); NEUT % 86.3 % (16.0-70.0); PLATELET COUNT 219 TH/MM3 (150-450); RED BLOOD COUNT 4.34 MIL/MM3 (4.00-5.30); RED CELL DISTRIBUTION WIDTH 16.3 % (11.6-17.2); WHITE BLOOD COUNT 12.4 TH/MM3 (4.0-11.0)
[2017-09-11 11:52] LABS: INTERNATIONAL NORMALIZED RATIO 1.1 RATIO; PROTHROMBIN TIME - PATIENT 10.8 SEC (9.8-11.6)
[2017-09-11 11:56] LABS: ALT (GPT) 97 U/L (10-53)
[2017-09-11 11:59] LABS: ALKALINE PHOSPHATASE 325 U/L (45-117); TOTAL BILIRUBIN ADULT 1.1 MG/DL (0.2-1.0); TOTAL PROTEIN 7.1 GM/DL (6.4-8.2); TROPONIN I 0.04 NG/ML (0.02-0.05)
[2017-09-11 12:05] LABS: ALBUMIN 3.2 GM/DL (3.4-5.0); AST (GOT) 77 U/L (15-37); BICARBONATE 20.8 MEQ/L (21.0-32.0); BLOOD UREA NITROGEN 49 MG/DL (7-18); CHLORIDE 112 MEQ/L (98-107); CREATININE 1.05 MG/DL (0.50-1.00); GLOMERULAR FILTRATION RATE 52 ML/MIN (>89); GLUCOSE,RANDOM 108 MG/DL (74-106); SODIUM (NA) 145 MEQ/L (136-145)
--- NOTE | 2017-09-11 12:26 | RADRPT ---
EXAM DATE/TIME: 09/11/2017 11:30 [facility] COMPARISON: No previous studies available for comparison. INDICATIONS : Altered mental status RADIATION DOSE: 56.35 CTDIvol (mGy) MEDICAL HISTORY : Carcinoma, lung. Cardiovascular disease Chronic obstructive pulmonary disease. SURGICAL HISTORY : None. ENCOUNTER: Initial ACUITY: 2 days PAIN SCALE: 0/10 LOCATION: cranial TECHNIQUE: Multiple contiguous axial images were obtained of the head. Using automated exposure control and adj ustment of the mA and/or kV according to patient size, radiation dose was kept as low as reasonably a chievable to obtain optimal diagnostic quality images. DICOM format image data is available electro nically for review and comparison. FINDINGS: CEREBRUM: The ventricles are normal for age. There is bilateral cortical atrophy and chronic white matter tapia es. There is a tiny old lacunar infarct in the left basal ganglia. No evidence of midline shift, mas s lesion, hemorrhage or acute infarction. No extra-axial fluid collections are seen. POSTERIOR FOSSA: The cerebellum and brainstem are intact. There are chronic changes in the midbrain. The 4th ventricle is midline. The cerebellopontine angle is unremarkable. EXTRACRANIAL: The visualized portion of the orbits is intact. SKULL: The calvaria is intact. No evidence of skull fracture. CONCLUSION: 1. No acute intracranial hemorrhage. 2. Bilateral cortical atrophy and chronic white matter changes. 3. Tiny old lacunar infarct in left basal ganglia. Gabino Kern MD on September 11, 2017 at 12:22 Board Certified Radiologist. This report was verified electronically.
--- NOTE | 2017-09-11 12:35 | RADRPT ---
EXAM DATE/TIME: 09/11/2017 12:00 [facility] COMPARISON: CHEST SINGLE AP, July 12, 2017, 16:32. INDICATIONS : Altered mental status- Chest pain and shortness of breath. Syncopal episode. MEDICAL HISTORY : Right upper lung cancer. SURGICAL HISTORY : None. ENCOUNTER: Initial ACUITY: 1 day PAIN SCORE: Non-responsive. LOCATION: Bilateral chest FINDINGS: A single view of the chest demonstrates the lungs to be symmetrically aerated without evidence of mas s, infiltrate or effusion. There is focal linear scarring versus atelectasis in the medial left lowe r lung. The previously noted infiltrates have resolved. The cardiomediastinal contours are unremarkab le. Osseous structures are intact. CONCLUSION: 1. Focal linear scar versus atelectasis left lower lung. 2. Otherwise, the lungs are clear. Gabino Kern MD on September 11, 2017 at 12:31 Board Certified Radiologist. This report was verified electronically.
[2017-09-11 13:41] LABS: BILIRUBIN, URINE NEG (NEG); BLOOD, URINE NEG (NEG); GLUCOSE,URINE NEG (NEG); KETONE, URINE 10 mg/dL (NEG); MUCUS URINE FEW /lpf (OCC); NITRITE,URINE NEG (NEG); PH, URINE 5.5 (5.0-8.5); SQUAMOUS EPITHELIAL CELL URINE <1 /hpf (0-5); URINE COLOR YELLOW (YELLW/STRAW); URINE LEUKOCYTE ESTERASE NEG (NEG)
--- NOTE | 2017-09-11 14:24 | PD ---
HPI Chief Complaint: Altered Mental Status Time Seen by Provider: 10:56 Travel History International Travel<30 days: No Contact w/Intl Traveler<30days: No Traveled to known affect area: No History of Present Illness HPI Patient is a 67-year-old female, with history of lung cancer, who comes in due to altered mental status. Per EMS, they found her on the ground after police performed a well being checked. Per son, he was told by neighbors that she fell and hit her head on Sunday. He said that he was unable to get ahold of her since yesterday and was concerned so he called the police. Patient is confused and unable to provide much history. PFSH Past Medical History Arthritis: Yes Cancer: Yes (right upper lung) Cardiovascular Problems: Yes Chemotherapy: Yes COPD: Yes Diabetes: No Endocrine: Yes GERD: Yes (during radiation treatments) Genitourinary: No Hepatitis: No Hiatal Hernia: No Immune Disorder: No Musculoskeletal: Yes Neurologic: No Psychiatric: No Reproductive: No Respiratory: No Immunizations Current: No Radiation Therapy: Yes Thyroid Disease: Yes ?: Not Menopausal: Yes Past Surgical History Abdominal Surgery: No AICD: No Cardiac Surgery: No Ear Surgery: No Endocrine Surgery: No Eye Surgery: No Genitourinary Surgery: No Gynecologic Surgery: Yes (tubal ligation) Joint Replacement: Yes (bilateral hips; right knee) Oral Surgery: Yes (teeth extractions) Pacemaker: No Thoracic Surgery: No Other Surgery: Yes Social History Alcohol Use: No Tobacco Use: No Substance Use: No Allergies-Medications (Allergen,Severity, Reaction): Coded Allergies: penicillin G (Unverified Allergy, Severe, SWELLING, HIVES, 07/09/17) bacitracin (Verified Allergy, Intermediate, rash, 07/09/17) polymyxin B (Verified Allergy, Intermediate, rash, 07/09/17) Reported Meds & Prescriptions Reported Meds & Active Scripts Active Protonix (Pantoprazole Sodium) 40 Mg Tab 40 Mg PO DAILY Sodium Chloride 1 Gram Tab 1 Gm PO TID 10 Days Potassium Chloride Microencaps 20 Meq Tab 40 Meq PO Q12HR 7 Days Diflucan (Fluconazole) 200 Mg Tab 200 Mg PO DAILY 10 Days Levaquin (Levofloxacin) 500 Mg Tablet 500 Mg PO DAILY 10 Days Review of Systems ROS Limitations: Clinical Condition, Altered Mental Status Physical Exam Narrative GENERAL: Awake and alert, but confused. SKIN: Focused skin assessment warm/dry. No wounds or signs of infection. HEAD: Atraumatic. Normocephalic. EYES: Pupils equal and round. No scleral icterus. No injection or drainage. ENT: Dry mucus membranes, cracked lips. NECK: Trachea midline. No JVD. CARDIOVASCULAR: Regular rate and rhythm. No murmur appreciated. RESPIRATORY: No accessory muscle use. Clear to auscultation. Breath sounds equal bilaterally. GASTROINTESTINAL: Abdomen soft, non-tender, nondistended. MUSCULOSKELETAL: No obvious deformities. No clubbing. No cyanosis. No edema. NEUROLOGICAL: Awake and alert, but confused. No obvious cranial nerve deficits. Motor grossly within normal limits. Data Data Last Documented VS Vital Signs Date Time Temp Pulse Resp B/P (MAP) Pulse Ox O2 Delivery O2 Flow Rate FiO2 09/11/17 11:28 99 Room Air 09/11/17 11:00 97.7 96 21 Orders Orders Electrocardiogram (09/11/17 10:57) Ammonia (09/11/17 10:57) Complete Blood Count With Diff (09/11/17 10:57) Comprehensive Metabolic Panel (09/11/17 10:57) Creatine Kinase (Cpk) (09/11/17 10:57) Prothrombin Time / Inr (Pt) (09/11/17 10:57) Act Partial Throm Time (Ptt) (09/11/17 10:57) Troponin I (09/11/17 10:57) Urinalysis - C+S If Indicated (09/11/17 10:57) Lactic Acid Sepsis Protocol (09/11/17 10:57) Chest, Single Ap (09/11/17 10:57) Ct Brain W/O Iv Contrast(Rout) (09/11/17 10:57) Blood Glucose (09/11/17 10:57) Ecg Monitoring (09/11/17 10:57) Iv Access Insert/Monitor (09/11/17 10:57) Oximetry (09/11/17 10:57) Sodium Chloride 0.9% Flush (Ns Flush) (09/11/17 11:00) Sodium Chlor 0.9% 1000 Ml Inj (Ns 1000 M (09/11/17 10:57) Admit Order (Ed Use Only) (09/11/17 ) Labs Laboratory Tests Test 09/11/17 10:59 09/11/17 11:28 09/11/17 13:26 White Blood Count 12.4 TH/MM3 Red Blood Count 4.34 MIL/MM3 Hemoglobin 14.4 GM/DL Hematocrit 42.5 % Mean Corpuscular Volume 97.9 FL Mean Corpuscular Hemoglobin 33.2 PG Mean Corpuscular Hemoglobin Concent 33.9 % Red Cell Distribution Width 16.3 % Platelet Count 219 TH/MM3 Mean Platelet Volume 8.1 FL Neutrophils (%) (Auto) 86.3 % Lymphocytes (%) (Auto) 7.3 % Monocytes (%) (Auto) 5.9 % Eosinophils (%) (Auto) 0.1 % Basophils (%) (Auto) 0.4 % Neutrophils # (Auto) 10.7 TH/MM3 Lymphocytes # (Auto) 0.9 TH/MM3 Monocytes # (Auto) 0.7 TH/MM3 Eosinophils # (Auto) 0.0 TH/MM3 Basophils # (Auto) 0.1 TH/MM3 CBC Comment DIFF FINAL Differential Comment Prothrombin Time 10.8 SEC Prothromb Time International Ratio 1.1 RATIO Activated Partial Thromboplast Time 23.5 SEC Blood Urea Nitrogen 49 MG/DL Creatinine 1.05 MG/DL Random Glucose 108 MG/DL Total Protein 7.1 GM/DL Albumin 3.2 GM/DL Calcium Level 9.0 MG/DL Alkaline Phosphatase 325 U/L Aspartate Amino Transf (AST/SGOT) 77 U/L Alanine Aminotransferase (ALT/SGPT) 97 U/L Total Bilirubin 1.1 MG/DL Sodium Level 145 MEQ/L Potassium Level 3.4 MEQ/L Chloride Level 112 MEQ/L Carbon Dioxide Level 20.8 MEQ/L Anion Gap 12 MEQ/L Estimat Glomerular Filtration Rate 52 ML/MIN Total Creatine Kinase 159 U/L Troponin I 0.04 NG/ML Lactic Acid Level 1.7 mmol/L Ammonia 28 MCMOL/L Urine Color YELLOW Urine Turbidity CLEAR Urine pH 5.5 Urine Specific [place] 1.023 Urine Protein TRACE mg/dL Urine Glucose (UA) NEG mg/dL Urine Ketones 10 mg/dL Urine Occult Blood NEG Urine Nitrite NEG Urine Bilirubin NEG Urine Urobilinogen LESS THAN 2.0 MG/DL Urine Leukocyte Esterase NEG Urine WBC 1 /hpf Urine Squamous Epithelial Cells <1 /hpf Urine Mucus FEW /lpf Microscopic Urinalysis Comment CATH-CULT NOT IND MDM Medical Decision Making Medical Screen Exam Complete: Yes Emergency Medical Condition: Yes Medical Record Reviewed: Yes Interpretation(s) ECG shows NSR, no ST elevation or depression Differential Diagnosis Infection vs ICH vs electrolyte abnormalities Narrative Course Patient is a 67 year old female who comes in due to AMS. She was found on the ground of her apartment and she is obvious dehydrated. IV established, labs sent. Labs show evidence of dehydration with a BUN of 42 and a Cr of 1.05. Given IVF. Head CT performed shows no acute abnormalities. CXR shows no acute abnormalities. Last [address] 09/11/[id number] Signed Impressions: Service Date/Time: Monday, September 11, 2017 11:30 - CONCLUSION: 1. No acute intracranial hemorrhage. 2. Bilateral cortical atrophy and chronic white matter changes. 3. Tiny old lacunar infarct in left basal ganglia. Gabino Kern MD Chest X-Ray 09/11/179 Signed Impressions: Service Date/Time: Monday, September 11, 2017 12:00 - CONCLUSION: 1. Focal linear scar versus atelectasis left lower lung. 2. Otherwise, the lungs are clear. Gabino Kern MD Patient is still very confused and unable to care for herself. She will be admitted for further management. Diagnosis Primary Impression: Altered mental status Qualified Codes: R41.82 - Altered mental status, unspecified Additional Impression: Dehydration Admitting Information Admitting Physician Requests: Admit Madelyn Barakat MD Sep 11, 2017 14:24
[2017-09-11] MEDS ORDERED: BISACODYL 10 MG SUPP RECTAL PRN (15:15)
[2017-09-11] MEDS ORDERED: MAGNESIUM HYDROXIDE SUSP 30 ML CUP PO PRN (15:15)
[2017-09-11] MEDS ORDERED: ACETAMINOPHEN 325 MG TAB PO PRN (15:15)
[2017-09-11] MEDS ORDERED: LACTULOSE SYRUP 20 GM/30 ML CUP PO PRN (15:15)
[2017-09-11] MEDS ORDERED: SENNOSIDES 8.6 MG TAB PO PRN (15:15)
[2017-09-11] MEDS ORDERED: NALOXONE HCL 0.4 MG/ML AMP IV PUSH PRN (15:15)
[2017-09-11] MEDS: 1/2 NS + KCL 20 MEQ INJ 1,000 ML IV SCH (17:44)
[2017-09-11] MEDS: SODIUM CHLORIDE 0.9% FLUSH 10 ML FLUSH IV FLUSH SCH (20:44)
[2017-09-12] VITALS (10 sets, daily range): BP systolic 113–151; BP diastolic 63–74; PULSE 84–111; RESP 18–21; TEMP 97.3–98.6; O2SAT 95–97
[2017-09-12] MEDS: 1/2 NS + KCL 20 MEQ INJ 1,000 ML IV SCH ×2 (05:24→16:18)
--- NOTE | 2017-09-12 08:19 | HHI.HP ---
History of Present Illness Service Medicine Primary Care Physician No Primary Care Physician Admission Diagnosis AMS Diagnoses: (1) Acute urinary retention (2) DALIA (acute kidney injury) (3) Hypokalemia (4) Metastatic lung cancer (metastasis from lung to other site) History of Present Illness Patient is a 67-year-old female, with history of lung cancer, who comes in due to altered mental status. Per EMS, they found her on the ground after police performed a well being checked. Per son, he was told by neighbors that she fell and hit her head on Sunday. He said that he was unable to get ahold of her since yesterday and was concerned so he called the police. Patient is confused and unable to provide much history. . She has undergone a PET CT scan at [facility] on July 24. This revealed new diffuse and extensive liver metastatic disease. A single 1 cm hypermetabolic pulmonary nodule in the right lower lobe and hypermetabolism in the stomach which of course may be related to her recent surgery. Additionally, an MRI of the brain was performed. This showed several intracranial lesions, the largest being 1.3 x 1.5 cm. There were multiple subcentimeter lesions as well. Review of Systems Constitutional: COMPLAINS OF: Change in appetite Respiratory: DENIES: Sputum production, Shortness of breath Cardiovascular: DENIES: Chest pain, Palpitations, Lower Extremity Edema Gastrointestinal: DENIES: Constipation, Diarrhea, Nausea, Vomiting Neurologic: COMPLAINS OF: Localized weakness, Poor Balance Psychiatric: COMPLAINS OF: Confusion, Agitation Except as stated in HPI: all other systems reviewed are Neg urinary retention Past Family Social History Allergies: Coded Allergies: penicillin G (Unverified Allergy, Severe, SWELLING, HIVES, 07/09/17) bacitracin (Verified Allergy, Intermediate, rash, 07/09/17) polymyxin B (Verified Allergy, Intermediate, rash, 07/09/17) Past Medical History Arthritis: Yes Cancer: Yes lung, COPD: Yes Musculoskeletal: Yes (OA) Past Surgical History Gynecologic Surgery: Yes (UTERINE ABLATION, ) Joint Replacement: Yes (LEFT HIP right hip) Oral Surgery: Yes (TONSILLECTOMY) Thoracic Surgery: Yes (BREAST BX RIGHT) Over-sew of gastric ulcer with Edvin patch Active Ordered Medications Current Medications Medications (Trade) Dose Ordered Sig/Salvatore Route Start Time Stop Time Status Last Admin (NS Flush) 2 ml UNSCH PRN IV FLUSH 09/11/17 15:15 (NS Flush) 2 ml BID IV FLUSH 09/11/17 21:00 (Tylenol) 650 mg Q4H PRN PO 09/11/17 15:15 (Narcan Inj) 0.4 mg UNSCH PRN IV PUSH 09/11/17 15:15 (Milk Of Magnesia Liq) 30 ml Q12H PRN PO 09/11/17 15:15 (Senokot) 17.2 mg Q12H PRN PO 09/11/17 15:15 (Dulcolax Supp) 10 mg DAILY PRN RECTAL 09/11/17 15:15 (Lactulose Liq) 30 ml DAILY PRN PO 09/11/17 15:15 Potassium Chloride/Sodium Chloride 1,000 ml @ 84 mls/hr [id number] IV 09/11/17 16:00 09/12/17 05:24 (Pneumovax-23 Inj) 25 mcg ONCE ONCE IM 09/12/17 10:00 09/12/17 10:01 (Protonix) 40 mg DAILY PO 09/12/17 09:00 Family History Mother diabetes, cardiac disease Father form prostate cancer Social History Quit smoking over 10 years ago ETOH occasionally Lives alone Physical Exam Vital Signs Vital Signs Date Time Temp Pulse Resp B/P (MAP) Pulse Ox O2 Delivery O2 Flow Rate FiO2 09/12/17 04:00 97.4 86 18 123/63 (83) 95 09/12/17 04:00 Room Air 09/12/17 03:47 88 09/12/17 00:00 Room Air 09/12/17 00:00 97.3 92 18 119/65 (83) 96 09/11/17 23:47 98 09/11/17 20:00 Room Air 09/11/17 20:00 97.5 86 18 129/70 (89) 96 09/11/17 19:46 84 09/11/17 16:31 09/11/17 16:30 97.3 81 20 123/71 (88) 96 09/11/17 16:02 92 17 120/73 (89) 98 Room Air 09/11/17 11:28 99 Room Air 09/11/17 11:00 97.7 96 21 118/67 (84) 99 Room Air Physical Exam GENERAL: Awake and alert, but confused. SKIN: Focused skin assessment warm/dry. HEAD: Atraumatic. Normocephalic. EYES: Pupils equal and round. No scleral icterus. No injection or drainage. ENT: No nasal bleeding or discharge. Mucous membranes pink and moist. NECK: Trachea midline. No JVD. CARDIOVASCULAR: Regular rate and rhythm. No murmur appreciated. RESPIRATORY: No accessory muscle use. Clear to auscultation. Breath sounds equal bilaterally. GASTROINTESTINAL: Abdomen soft, non-tender, nondistended. Hepatic and splenic margins not palpable. MUSCULOSKELETAL: No obvious deformities. No clubbing. No cyanosis. No edema. NEUROLOGICAL: Awake and alert. No obvious cranial nerve deficits. Motor grossly within normal limits. Normal speech. PSYCHIATRIC: Appropriate mood and affect; insight and judgment normal. Laboratory Laboratory Tests Test 09/11/17 10:59 09/11/17 11:28 09/11/17 13:26 White Blood Count 12.4 Red Blood Count 4.34 Hemoglobin 14.4 Hematocrit 42.5 Mean Corpuscular Volume 97.9 Mean Corpuscular Hemoglobin 33.2 Mean Corpuscular Hemoglobin Concent 33.9 Red Cell Distribution Width 16.3 Platelet Count 219 Mean Platelet Volume 8.1 Neutrophils (%) (Auto) 86.3 Lymphocytes (%) (Auto) 7.3 Monocytes (%) (Auto) 5.9 Eosinophils (%) (Auto) 0.1 Basophils (%) (Auto) 0.4 Neutrophils # (Auto) 10.7 Lymphocytes # (Auto) 0.9 Monocytes # (Auto) 0.7 Eosinophils # (Auto) 0.0 Basophils # (Auto) 0.1 CBC Comment DIFF FINAL Differential Comment Prothrombin Time 10.8 Prothromb Time International Ratio 1.1 Activated Partial Thromboplast Time 23.5 Blood Urea Nitrogen 49 Creatinine 1.05 Random Glucose 108 Total Protein 7.1 Albumin 3.2 Calcium Level 9.0 Alkaline Phosphatase 325 Aspartate Amino Transf (AST/SGOT) 77 Alanine Aminotransferase (ALT/SGPT) 97 Total Bilirubin 1.1 Sodium Level 145 Potassium Level 3.4 Chloride Level 112 Carbon Dioxide Level 20.8 Anion Gap 12 Estimat Glomerular Filtration Rate 52 Total Creatine Kinase 159 Troponin I 0.04 Lactic Acid Level 1.7 Ammonia 28 Urine Color YELLOW Urine Turbidity CLEAR Urine pH 5.5 Urine Specific [place] 1.023 Urine Protein TRACE Urine Glucose (UA) NEG Urine Ketones 10 Urine Occult Blood NEG Urine Nitrite NEG Urine Bilirubin NEG Urine Urobilinogen LESS THAN 2.0 Urine Leukocyte Esterase NEG Urine WBC 1 Urine Squamous Epithelial Cells <1 Urine Mucus FEW Microscopic Urinalysis Comment CATH-CULT NOT IND Result Diagram: 09/11/17 1059 09/11/17 105 Imaging Last [address] 09/11/17 1057 Signed Impressions: Service Date/Time: Monday, September 11, 2017 11:30 - CONCLUSION: 1. No acute intracranial hemorrhage. 2. Bilateral cortical atrophy and chronic white matter changes. 3. Tiny old lacunar infarct in left basal ganglia. Gabino Kern MD Chest X-Ray 09/11/17 105 Signed Impressions: Service Date/Time: Monday, September 11, 2017 12:00 - CONCLUSION: 1. Focal linear scar versus atelectasis left lower lung. 2. Otherwise, the lungs are clear. MD Ruy Villalba VTE Risk Assessment Caprini VTE Risk Assessment: Mod/High Risk (score >= 2) Caprini Risk Assessment Model Point Value = 1 Point Value = 2 Point Value = 3 Point Value = 5 Age 41-60 Minor surgery BMI > 25 kg/m2 Swollen legs Varicose veins or History of unexplained or recurrent spontaneous Oral contraceptives or hormone replacement Sepsis (< 1 month) Serious lung disease, including pneumonia (< 1 month) Abnormal pulmonary function Acute myocardial infarction Congestive heart failure (< 1 month) History of inflammatory bowel disease Medical patient at bed rest Age 61-74 Arthroscopic surgery Major open surgery (> 45 min) Laparoscopic surgery (> 45 min) Malignancy Confined to bed (> 72 hours) Immobilizing plaster cast Central venous access Age >= 75 History of VTE Family history of VTE Factor V Leiden Prothrombin [id number] Lupus anticoagulant Anticardiolipin antibodies Elevated serum homocysteine Heparin-induced thrombocytopenia Other congenital or acquired thrombophilia Stroke (< 1 month) Elective arthroplasty Hip, pelvis, or leg fracture Acute spinal cord injury (< 1 month) Prophylaxis Regimen Total Risk Factor Score Risk Level Prophylaxis Regimen 0-1 Low Early ambulation 2 Moderate Order ONE of the following: *Sequential Compression Device (SCD) *Heparin 5000 units SQ BID 3-4 Higher Order ONE of the following medications: *Heparin 5000 units SQ TID *Enoxaparin/Lovenox 40 mg SQ daily (WT < 150 kg, CrCl > 30 mL/min) *Enoxaparin/Lovenox 30 mg SQ daily (WT < 150 kg, CrCl > 10-29 mL/min) *Enoxaparin/Lovenox 30 mg SQ BID (WT < 150 kg, CrCl > 30 mL/min) AND/OR *Sequential Compression Device (SCD) 5 or more Highest Order ONE of the following medications: *Heparin 5000 units SQ TID (Preferred with Epidurals) *Enoxaparin/Lovenox 40 mg SQ daily (WT < 150 kg, CrCl > 30 mL/min) *Enoxaparin/Lovenox 30 mg SQ daily (WT < 150 kg, CrCl > 10-29 mL/min) *Enoxaparin/Lovenox 30 mg SQ BID (WT < 150 kg, CrCl > 30 mL/min) AND *Sequential Compression Device (SCD) Assessment and Plan Problem List: (1) Acute urinary retention ICD Codes: R33.8 - Other retention of urine (2) DALIA (acute kidney injury) ICD Codes: N17.9 - Acute kidney failure, unspecified (3) Metastatic lung cancer (metastasis from lung to other site) ICD Codes: C34.90 - Malignant neoplasm of unspecified part of unspecified bronchus or lung (4) Hypokalemia ICD Codes: E87.6 - Hypokalemia Assessment and Plan 09/12/17 AMS: Neurology consulted. UA and chest Xray with no acute findings. Per records PET CT scan at [facility] on July 24. This revealed new diffuse and extensive liver metastatic disease. A single 1 cm hypermetabolic pulmonary nodule in the right lower lobe and hypermetabolism in the stomach which of course may be related to her recent surgery. Additionally, an MRI of the brain was performed. This showed several intracranial lesions, the largest being 1.3 x 1.5 cm. There were multiple subcentimeter lesions as well. Patient is not able to give me any history. Patients oncologist consulted. Hypokalemia: Potassium yesterday 3.4 on IVF's with potassium replacement. Recheck is pending. Urinary retention: I+O cath this morning. May need catheter if does not improve today. DALIA: BUN 49 and Creat 1.05 yesterday. IVF infusing and labs are pending. Leukocytosis; WBC 12.4 and AMS. Will consult ID for recommendations. I and the WAX ROOM SUPERVISOR have both examined this patient and reviewed this note and I agree with these findings and plan of care. Lisa Gyu. WAX ROOM SUPERVISOR Sep 12, 2017 08:19
[2017-09-12 08:53] LABS: AUTOMATED NEUTROPHIL # 10.3 TH/MM3 (1.8-7.7); BASOPHIL % 0.3 % (0.0-2.0); EOSINOPHIL % 0.1 % (0.0-4.0); HEMOGLOBIN 13.2 GM/DL (11.6-15.3); LYMPH % 6.1 % (9.0-44.0); LYMPHOCYTE # 0.7 TH/MM3 (1.0-4.8); MEAN CORPUSCULAR HEMOGLOBIN 33.1 PG (27.0-34.0); MEAN CORPUSCULAR HGB CONC 33.8 % (32.0-36.0); MEAN PLATELET VOLUME 8.3 FL (7.0-11.0); MONO % 5.1 % (0.0-8.0); MONOCYTE # 0.6 TH/MM3 (0-0.9); NEUT % 88.4 % (16.0-70.0); PLATELET COUNT 192 TH/MM3 (150-450); RED BLOOD COUNT 3.98 MIL/MM3 (4.00-5.30); RED CELL DISTRIBUTION WIDTH 16.3 % (11.6-17.2); WHITE BLOOD COUNT 11.6 TH/MM3 (4.0-11.0)
[2017-09-12] MEDS: SODIUM CHLORIDE 0.9% FLUSH 10 ML FLUSH IV FLUSH SCH ×2 (09:00→20:39)
[2017-09-12] MEDS: PANTOPRAZOLE SOD 40 MG DELAYED RELEASE TAB PO SCH (09:00)
--- NOTE | 2017-09-12 09:15 | MB ---
cc: KEVIN CANTOR M.D. DATE OF CONSULTATION: 09/12/2017 REASON FOR CONSULTATION Mental status change. HISTORY OF PRESENT ILLNESS Ms. Madden is a 67-year-old woman who has a history of lung cancer, who fell due to dizziness and hit her head and has been confused and disoriented. She states she did not lose consciousness, she felt suddenly dizzy, fell and struck her head, no focal deficits. She denies headache or other neurologic complaints. PAST MEDICAL HISTORY She has a history of lung cancer. Denies any other past medical history. She states she has had radiation therapy as well as chemotherapy. She has signs of liver metastases from the lung cancer and a recent PET CT scan at [place] in July of this year. She was found to have a single hypermetabolic pulmonary nodule right lower lobe with hypermetabolism in the stomach, probably related to recent surgery. She had a brain MRI performed as well showing several intracranial lesions. MEDICATIONS Current medications are: 1. Protonix 40 mg daily. 2. Tylenol 3. Narcan p.r.n. 4. Senokot. 5. Dulcolax. 6. Lactulose. NEUROLOGIC EXAMINATION VITAL SIGNS: The blood pressure is 123/63, pulse is 86, respiratory rate is 18, temperature 97 degrees. Higher cortical function, she is alert, oriented x2, recall 0/3 objects in 3 minutes. Remote memory is poor. 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 She does have confusion, unable to calculate. She follows simple commands but has difficulty with attention. Cranial nerves intact. Motor exam no focal deficit. Reflexes are symmetric. IMAGING STUDIES CT scan of the brain: No acute changes, bilateral atrophy, there is an old lacunar stroke left basal ganglia. LABORATORY DATA White count 12,400, hemoglobin 14.4, hematocrit 42%, platelet count 219,000, PT 10.8, INR 1.1, APTT 23.5. Sodium is 145, potassium 3.4, chloride 112, CO2 20.8, BUN is 49, creatinine 1.05, GFR 52, AST 77, ALT 97, alk phos 325, ammonia 28. Urinalysis pH is 5.5, specific gravity 1.023. IMPRESSION The patient apparently by history has metastatic lung cancer. Recent MRI coordinates with the notes, indicate brain lesions. She has mental status change, probably encephalopathy versus effect of metastatic disease, rule out focal seizure. RECOMMENDATIONS I would like to repeat the MRI of the brain for further evaluation. Also, obtain an EEG to rule out focal seizure activity. MD ESTRELLA Mane/ETHAN /8:13 AM /8:32 AM
[2017-09-12 09:16] LABS: ALBUMIN 2.8 GM/DL (3.4-5.0); ALT (GPT) 83 U/L (10-53); AST (GOT) 75 U/L (15-37); BICARBONATE 20.1 MEQ/L (21.0-32.0); BLOOD UREA NITROGEN 32 MG/DL (7-18); CALCIUM 8.5 MG/DL (8.5-10.1); CHLORIDE 116 MEQ/L (98-107); CREATININE 0.66 MG/DL (0.50-1.00); GLOMERULAR FILTRATION RATE 89 ML/MIN (>89); GLUCOSE,RANDOM 60 MG/DL (74-106); SODIUM (NA) 147 MEQ/L (136-145)
[2017-09-12 09:18] LABS: ALKALINE PHOSPHATASE 297 U/L (45-117); TOTAL BILIRUBIN ADULT 1.1 MG/DL (0.2-1.0); TOTAL PROTEIN 6.2 GM/DL (6.4-8.2)
[2017-09-12] MEDS ORDERED: PNEUMOCOCCAL POLYVALENT INJ 25 MCG/0.5 ML SYR IM ONE (10:00)
[2017-09-12] MEDS ORDERED: GADODIAMIDE PF 287 MG/ML 10 ML VIAL (for RAD MRI) IVCONTRAST ONE (13:33)
--- NOTE | 2017-09-12 13:53 | MG ---
cc: EVELYNE DAMON M.D. Lab No: [id number] Date: 09/12/2017 Age: 67 Sex: F Race: DATE OF : 1950 Room 1406, asleep with photic stimulation. REFERRING PHYSICIAN Dr. Ramachandran. CT shows cortical atrophy, old lacunes in the left basal ganglia, white matter changes. This is a 67-year-old woman with change in mental status, fell and hit her head, confused, had a recent PET scan that showed extensive liver metastatic disease. MRI brain shows several intracranial lesions, largest 1.3 x 1.5 and multiple subcentimeter lesions as well. Medicines, potassium is only listed. She has a history also of lung cancer. DESCRIPTION OF RECORD There is a lot of artifact but overall 5 Hz background is noted. She has movement throughout, unfortunately, somewhat suboptimal study but no gross epileptic activity seen. Photic stimulation, there is a driving response to more artifact after the event. IMPRESSION Abnormal EEG due to mild to moderate slowing consistent with encephalopathic process. No evidence of any epileptiform features in this one recording. Clinical correlation. MD JOVI Downing/ETHAN /1:18 PM /1:30 PM
--- NOTE | 2017-09-12 14:11 | RADRPT ---
EXAM DATE/TIME: 09/12/2017 13:00 [facility] COMPARISON: No previous studies available for comparison. INDICATIONS : Metastatic disease. Lung ca. CONTRAST: 10 cc Omniscan (gadodiamide) IV MEDICAL HISTORY : Carcinoma, lung. SURGICAL HISTORY : Left hip replacement/Gastric ulcer ENCOUNTER: Initial ACUITY: 2 day PAIN SCORE: 0/10 LOCATION: head TECHNIQUE: Multiplanar, multisequence MRI of the brain was performed both prior to and following the administrat ion of paramagnetic contrast. FINDINGS: 3 discrete intra-axial enhancing lesions are identified. These are located in the right temporal lobe , left temporal lobe and right side of the quadrigeminal plate the largest measures 8.4 mm and is loc ated medially within the left temporal lobe. Abnormal signal intensity and enhancement is identified in the cisternal and intracanalicular segment s of the right seventh and eighth nerves. The ventricles are mildly distended and are outlined by periventricular T2 hyperintensity. There is n o evidence of ependymal or parenchymal enhancement. There is no evidence of restricted diffusion suggesting the presence of infarct. Mild restricted diff usion is associated with the left temporal lobe lesion. Dural sinuses are patent. CONCLUSION: 1. Intra-axial enhancing lesions characteristic of metastatic disease. 2. 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 3. Mild amount of ventriculomegaly 4. No evidence of acute infarct, hemorrhage or significant mass effect. Reid Baptiste MD on September 12, 2017 at 13:54 Board Certified Radiologist. This report was verified electronically.
--- NOTE | 2017-09-12 15:15 | EKG ---
Date Performed: 09/11/2017 Time Performed: 11:53:33 PTAGE: 67 years EKG: Sinus rhythm WITH SINUS ARRHYTHMIA NONSPECIFIC ST & T-WAVE ABNORMALITY BORDERLINE ECG PREVIOUS TRACING : 07/09/2017 20.49 DOCTOR: Simon Bermudez Interpretating Date/Time 09/12/2017 15:14:32
--- NOTE | 2017-09-12 22:25 | MB ---
cc: OMER PETERSEN DATE OF CONSULTATION: 09/12/2017 REASON FOR CONSULTATION: Patient with a history of stage IV lung cancer. HISTORY OF PRESENT ILLNESS This is a 67-year-old female who has a diagnosis of stage IV lung cancer. She sees Dr. Brody who is her primary oncologist and Dr. Scherer, radiation oncologist. She has metastatic disease to the brain. She was brought to the emergency room with altered mental status. She was found on the floor. The patient was originally diagnosed with T4 N0 M0 right lung cancer. She received combined chemotherapy and radiation treatments which she completed in October 2015. She recently had hospitalization in June at [place] after she presented with acute abdominal pain. She was found to have perforated viscus from the gastric ulcer. She had surgery. During this hospital admission, she was found to have liver nodules and biopsy was consistent with lung cancer. She has had staging PET scan in July. This shows diffuse and extensive metastatic disease. There is also a single 1 cm hypermetabolic pulmonary nodule on the right lower lobe and hypermetabolism was also noted in the stomach. The MRI of the brain showed several intracranial lesions. The largest one was 1.3 x 1.5 cm. She was seen by Dr. Scherer for consideration of whole brain radiation. Upon review of Dr. Scherer's notes, it appears that she was going to be treated with multiple stereotactic radiation treatments instead of whole brain radiation. It appears that she received these treatments until August 27, 2017. In the emergency department she had an MRI of the brain today which shows intra-axial enhancing lesions characteristic for metastatic disease. 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 The patient remains in altered mental status. She is quite confused and unable to answer any questions. REVIEW OF SYSTEMS Unable to be obtained due to the patient's mental status. PAST MEDICAL HISTORY Stage IV lung cancer. Brain mets. PAST SURGICAL HISTORY 1. Uterine ablation. 2. Left hip surgery. 3. Tonsillectomy. 4. Right breast biopsy. FAMILY HISTORY Upon review of records, it appears that there is a family history of diabetes and cardiac disease. Father of prostate cancer. SOCIAL HISTORY: She is unable to answer any questions right now but based on the EMR, she quit smoking 10 years ago. She occasionally drinks alcohol. MEDICATIONS: 1. Pantoprazole 40 mg p.o. daily. 2. Tylenol p.r.n. 3. Sennosides. 4. Lactulose p.r.n. ALLERGIES BACITRACIN PENICILLIN G POLYMYXIN B. PHYSICAL EXAMINATION: VITAL SIGNS: Blood pressure is 118/64, pulse in the 100s, temperature 97.3, O2 sats are 97% on room air. General: Chronically ill-appearing patient who is confused. HEENT: Pupils are equal and react to light. EOMI. No thrush, no oral lesions. NECK: Neck is supple, no JVD, no bruits. No lymphadenopathy. CHEST: Chest is clear to auscultation bilaterally. CARDIAC: S1-S2 regular rate and rhythm. ABDOMEN: Abdomen is soft, nontender, nondistended. Bowel sounds are present. EXTREMITIES: Without any edema, erythema or cyanosis. SKIN: Without any petechiae, lesion or bruises. NEUROLOGIC: No focal deficits. PSYCHIATRIC: Mood and affect is appropriate. LABORATORY DATA: WBC 11.6, hemoglobin 13.2, platelet count 192. Serum chemistries shows sodium 147, potassium 3.4, CO2 20.1, BUN 32, creatinine 0.66, lactic acid 1.7, total bilirubin 1.1, AST 75, ALT is 83, alk phos 297, total protein is 6.2. Coags: PT 10.8, INR 1.1, PTT 20.5. IMAGING STUDIES: Brain MRI was review reviewed. Pathology: I have reviewed the liver biopsy results from June 2017. This was consistent with metastatic poorly differentiated non-small cell lung cancer. ASSESSMENT/PLAN This is a 67-year-old female with a history of stage IV [id number] lung cancer with brain mets who now presents to the emergency room with altered mental status. 1. Progressive stage IV [id number] lung cancer. She has intra-axial enhancing lesions in the brain. 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 She recently underwent stereotactic treatments to the brain. I will discuss this case with Dr. Scherer, who is her radiation oncologist. We will start this patient on steroids. I will discuss this case with her primary oncologist, Dr. Brody. Will also try to obtain records. This appears to be progressive disease and her prognosis is quite poor, especially with leptomeningeal spread. Will try to obtain information regarding her treatment history. It is unclear whether she has been treated with immunotherapy. The patient is also being seen by neurology. Would recommend continued supportive care at this time. 2. Transaminitis due to metastatic disease to the liver. 3. Alk phos is elevated 297, she likely has metastatic disease to the bone. Thank you for allowing me to participate in the care of this patient. I will continue to follow this patient along. MD JOSE Miranda/REJI /6:06 PM /9:51 PM
[2017-09-13] VITALS (9 sets, daily range): BP systolic 118–136; BP diastolic 62–97; PULSE 80–113; RESP 18–22; TEMP 97.1–97.7; O2SAT 92–98
[2017-09-13] MEDS: DEXAMETHASONE SOD PHOS 4 MG/ML VIAL IV PUSH SCH ×3 (00:50→17:10)
[2017-09-13] MEDS: 1/2 NS + KCL 20 MEQ INJ 1,000 ML IV SCH (03:52)
--- NOTE | 2017-09-13 08:02 | HHI.PR ---
Subjective Remarks Patient continue with AMS. MRI done yesterday noting metastatic disease Objective Vital Signs Date Time Temp Pulse Resp B/P (MAP) Pulse Ox O2 Delivery O2 Flow Rate FiO2 09/13/17 04:00 89 09/13/17 04:00 97.4 87 18 131/62 (85) 94 09/13/17 00:00 94 09/13/17 00:00 97.7 80 22 118/62 (80) 98 09/12/17 20:00 97.8 84 21 113/64 (80) 95 09/12/17 20:00 103 09/12/17 20:00 Room Air 09/12/17 16:06 97.3 105 18 118/64 (82) 97 09/12/17 16:00 111 09/12/17 12:11 97.6 105 18 119/74 (89) 96 09/12/17 12:00 97 09/12/17 08:06 98.6 91 18 151/72 (98) 97 09/12/17 08:00 96 I/O 09/12/17 09/12/17 09/12/17 09/13/17 09/13/17 09/13/17 07:00 15:00 23:00 07:00 15:00 23:00 Intake Total 1384 ml 120 ml 1120 ml Output Total 840 ml 510 ml 300 ml Balance 544 ml -390 ml 820 ml Intake Oral 390 ml 120 ml 120 ml IV Total 994 ml 1000 ml Output Urine Total 840 ml 510 ml 300 ml Bladder Scan Volume Amount 586 ml 131 ml 481 ml # Voids 1 # Bowel Movements 0 0 0 Result Diagram: 09/12/17 0637 09/12/17 0637 Imaging Last 72 hours Impressions Brain MRI 09/12/17 0000 Signed Impressions: Service Date/Time: Tuesday, September 12, 2017 13:00 - CONCLUSION: 1. Intra-axial enhancing lesions characteristic of metastatic disease. 2. 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 3. Mild amount of ventriculomegaly 4. No evidence of acute infarct, hemorrhage or significant mass effect. Reid Baptiste MD Head CT 09/11/17 1057 Signed Impressions: Service Date/Time: Monday, September 11, 2017 11:30 - CONCLUSION: 1. No acute intracranial hemorrhage. 2. Bilateral cortical atrophy and chronic white matter changes. 3. Tiny old lacunar infarct in left basal ganglia. Gabino Kern MD Chest X-Ray 09/11/17 1055 Signed Impressions: Service Date/Time: Monday, September 11, 2017 12:00 - CONCLUSION: 1. Focal linear scar versus atelectasis left lower lung. 2. Otherwise, the lungs are clear. Gabino Kern MD Other Results GENERAL: Confused SKIN: Warm and dry. HEAD: Normocephalic. EYES: No scleral icterus. No injection or drainage. NECK: Supple, trachea midline. No JVD or lymphadenopathy. CARDIOVASCULAR: Regular rate and rhythm without murmurs, gallops, or rubs. RESPIRATORY: Breath sounds equal bilaterally. No accessory muscle use. GASTROINTESTINAL: Abdomen soft, non-tender, nondistended. MUSCULOSKELETAL: No cyanosis, or edema. BACK: Nontender without obvious deformity. No CVA tenderness. Medications and IVs Current Medications Medications (Trade) Dose Ordered Sig/Salvatore Route Start Time Stop Time Status Last Admin (NS Flush) 2 ml UNSCH PRN IV FLUSH 09/11/17 15:15 (NS Flush) 2 ml BID IV FLUSH 09/11/17 21:00 09/12/17 09:00 (Tylenol) 650 mg Q4H PRN PO 09/11/17 15:15 (Narcan Inj) 0.4 mg UNSCH PRN IV PUSH 09/11/17 15:15 (Milk Of Magnesia Liq) 30 ml Q12H PRN PO 09/11/17 15:15 (Senokot) 17.2 mg Q12H PRN PO 09/11/17 15:15 (Dulcolax Supp) 10 mg DAILY PRN RECTAL 09/11/17 15:15 (Lactulose Liq) 30 ml DAILY PRN PO 09/11/17 15:15 Potassium Chloride/Sodium Chloride 1,000 ml @ 84 mls/hr [id number] IV 09/11/17 16:00 09/13/17 03:52 (Protonix) 40 mg DAILY PO 09/12/17 09:00 (Decadron Inj) 4 mg Q8H IV PUSH 09/13/17 00:15 09/13/17 00:50 Assessment and Plan Problem List: (1) Acute urinary retention ICD Codes: R33.8 - Other retention of urine (2) DALIA (acute kidney injury) ICD Codes: N17.9 - Acute kidney failure, unspecified (3) Metastatic lung cancer (metastasis from lung to other site) ICD Codes: C34.90 - Malignant neoplasm of unspecified part of unspecified bronchus or lung (4) Hypokalemia ICD Codes: E87.6 - Hypokalemia (5) Hypernatremia ICD Codes: E87.0 - Hyperosmolality and hypernatremia Assessment and Plan 09/12/17 AMS: Neurology consulted. UA and chest Xray with no acute findings. Per records PET CT scan at [facility] on July 24. This revealed new diffuse and extensive liver metastatic disease. A single 1 cm hypermetabolic pulmonary nodule in the right lower lobe and hypermetabolism in the stomach which of course may be related to her recent surgery. Additionally, an MRI of the brain was performed. This showed several intracranial lesions, the largest being 1.3 x 1.5 cm. There were multiple subcentimeter lesions as well. Patient is not able to give me any history. Patients oncologist consulted. Hypokalemia: Potassium yesterday 3.4 on IVF's with potassium replacement. Recheck is pending. Urinary retention: I+O cath this morning. May need catheter if does not improve today. DALIA: BUN 49 and Creat 1.05 yesterday. IVF infusing and labs are pending. Leukocytosis; WBC 12.4 and AMS. Will consult ID for recommendations. 09/13/17 AMS: Patient continues to AMS. 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 No evidence of acute infarct, hemorrhage or significant mass effect. IV steroids started. Per neurology note mental status change, probably encephalopathy versus effect of metastatic disease, rule out focal seizure. Hypokalemia: On IVF and oral replacement added today Hypernatremia; NA increased to 147mg/dl. IVF changed to D51/4 NS will recheck in AM Urinary retention: Becerra placed Leukocytosis: No source of infection noted however patient is very confused with mild leukocytosis. ID consulted. N. She has mental status change, probably encephalopathy versus effect of metastatic disease, rule out focal seizure. I and the [employer]NA[employer] have both examined this patient and reviewed this note and I agree with these findings and plan of care. Lisa Guy. [facility] Sep 13, 2017 08:02
[2017-09-13] MEDS ORDERED: POTASSIUM CHLORIDE 20 MEQ CONTROLLED RELEASE TAB PO ONE (09:00)
[2017-09-13] MEDS: SODIUM CHLORIDE 0.9% FLUSH 10 ML FLUSH IV FLUSH SCH ×2 (09:26→20:50)
[2017-09-13] MEDS: PANTOPRAZOLE SOD 40 MG DELAYED RELEASE TAB PO SCH (09:26)
[2017-09-13] MEDS: D5-1/4 NS + KCL 20 MEQ INJ 1,000 ML IV SCH ×2 (09:45→20:50)
[2017-09-13] MEDS ORDERED: ACETAMINOPHEN/HYDROcodone 325 MG/5 MG TAB PO PRN (11:30)
[2017-09-13 11:47] LABS: AUTOMATED NEUTROPHIL # 11.3 TH/MM3 (1.8-7.7); BASOPHIL # 0.1 TH/MM3 (0-0.2); BASOPHIL % 0.5 % (0.0-2.0); HEMATOCRIT 40.5 % (35.0-46.0); HEMOGLOBIN 13.9 GM/DL (11.6-15.3); LYMPH % 3.9 % (9.0-44.0); LYMPHOCYTE # 0.5 TH/MM3 (1.0-4.8); MEAN CELL VOLUME 97.5 FL (80.0-100.0); MEAN CORPUSCULAR HEMOGLOBIN 33.3 PG (27.0-34.0); MEAN CORPUSCULAR HGB CONC 34.2 % (32.0-36.0); MONO % 3.3 % (0.0-8.0); MONOCYTE # 0.4 TH/MM3 (0-0.9); NEUT % 92.3 % (16.0-70.0); PLATELET COUNT 210 TH/MM3 (150-450); RED BLOOD COUNT 4.16 MIL/MM3 (4.00-5.30); RED CELL DISTRIBUTION WIDTH 15.9 % (11.6-17.2); WHITE BLOOD COUNT 12.2 TH/MM3 (4.0-11.0)
--- NOTE | 2017-09-13 11:59 | MB ---
cc: ALYSHA LEWIS D.O., FRANKLYN F. MD DATE OF CONSULTATION 09/13/[address] Lewis. REASON FOR CONSULTATION Leukocytosis. HISTORY OF PRESENT ILLNESS This is a 67-year-old white female who was brought to the emergency department with altered mental status. The patient has a history of lung cancer with metastases. She was found on the ground after she fell at home and reportedly did not want to come to the hospital. She was eventually brought in to the hospital on 09/11/2017, which was about a week later. The patient had a white blood cell count of 12.4 on admission with 86% neutrophils. Urinalysis was performed on admission and it was unremarkable. She was afebrile on admission and heart rate was 96. Repeat white blood cell count on 09/12/2017 was 11.6. The patient is currently awake and she is quite alert. Her speech is somewhat slowed but she does get out her words and she does respond appropriately to questions. She stays awake during my interview and she does not appear to be in any acute distress. She has been afebrile. She had additional work-up including MRI of the brain which shows enhancing lesion characteristic of metastatic disease and also changes suggesting leptomeningeal metastatic disease. A chest x-ray shows focal linear scar versus atelectasis of the left lower lung. Otherwise lungs reportedly has clear. PAST MEDICAL HISTORY 1. Lung cancer with brain metastases (patient has received radiation therapy and chemotherapy). 2. Bilateral hip replacement. 3. Right knee surgery. 4. Back surgery. ALLERGIES 1. PENICILLIN. 2. BACITRACIN. 3. POLYMYXIN-B. MEDICATIONS 1. Decadron. 2. Protonix. SOCIAL HISTORY No tobacco. No alcohol. No illicit drugs. FAMILY HISTORY Noncontributory. REVIEW OF SYSTEMS Negative 10-point review except for back pain. PHYSICAL EXAMINATION GENERAL: This is a frail cachectic-appearing female who is in no acute distress. She is awake, alert and oriented. VITAL SIGNS: Temperature 97.1, BP 106/68, respirations 18, heart rate 89. HEENT: Head is atraumatic. Extraocular movements grossly intact. Pupils reactive to light. No icterus. Fair dentition. Moist mucosa without lesions. NECK: Supple. No adenopathy. LUNGS: Clear breath sounds bilaterally. HEART: Regular S1 and S2 without murmurs, rubs or gallops. ABDOMEN: Soft, benign, no tenderness appreciated. RECTAL: Not performed. EXTREMITIES: No clubbing, cyanosis or edema. No muscle wasting of the extremities. The right lower extremity is slightly swollen compared to the left. NEUROLOGIC: The patient is weak at the lower extremities. Upper extremity strength is 5+ bilaterally. IMAGING CT scan of the head showed no acute intracranial hemorrhage. Tiny lacunar infarcts in the left basal ganglia. IMPRESSION Leukocytosis, which is very mild and may be reactive. There is no clear evidence of infection in this patient at this time. She appears clinically stable and she has no fever. RECOMMENDATIONS Continue to monitor white blood cell count. I do not see any sign of infection and therefore I do not think there is any need to pursue any aggressive work-up for leukocytosis. Thank you for this consultation. Please call if further input is needed on this patient. Liborio Briseno MD FD/NATACHA /11:07 AM /11:20 AM
[2017-09-13 12:04] LABS: BICARBONATE 15.8 MEQ/L (21.0-32.0); CALCIUM 8.5 MG/DL (8.5-10.1); CREATININE 0.72 MG/DL (0.50-1.00)
[2017-09-14] VITALS: BP 153/79; PULSE 97; PULSE 98; RESP 22; TEMP 97.4; O2SAT 93
[2017-09-14] MEDS: DEXAMETHASONE SOD PHOS 4 MG/ML VIAL IV PUSH SCH ×2 (00:05→09:18)
[2017-09-14 04:00] VITALS: BP 142/73; PULSE 91; PULSE 92; RESP 21; TEMP 97.8; O2SAT 95
--- NOTE | 2017-09-14 07:32 | HHI.PR ---
Subjective Remarks In bed, alert oriented to self, appears comfortable Objective Vital Signs Date Time Temp Pulse Resp B/P (MAP) Pulse Ox O2 Delivery O2 Flow Rate FiO2 09/14/17 04:00 97.8 91 21 142/73 (96) 95 09/14/17 04:00 92 09/14/17 00:00 97 09/14/17 00:00 97.4 98 22 153/79 (103) 93 09/13/17 20:00 113 09/13/17 20:00 Room Air 09/13/17 20:00 97.4 108 21 135/85 (102) 94 09/13/17 16:06 97.7 113 18 136/97 (110) 92 09/13/17 16:00 106 09/13/17 12:08 97.3 107 19 130/64 (86) 93 09/13/17 12:00 89 09/13/17 08:06 97.1 89 18 126/68 (87) 96 09/13/17 08:00 82 I/O 09/13/17 09/13/17 09/13/17 09/14/17 09/14/17 09/14/17 07:00 15:00 23:00 07:00 15:00 23:00 Intake Total 1120 ml 1480 ml 0 ml Output Total 300 ml 200 ml 1350 ml Balance 820 ml 1280 ml -1350 ml Intake Oral 120 ml 480 ml 0 ml IV Total 1000 ml 1000 ml Output Urine Total 300 ml 200 ml 1350 ml # Bowel Movements 0 0 0 Result Diagram: 09/13/17 1134 09/13/17 1134 Assessment and Plan Assessment and Plan 09/12/17 AMS: Neurology consulted. UA and chest Xray with no acute findings. Per records PET CT scan at [facility] on July 24. This revealed new diffuse and extensive liver metastatic disease. A single 1 cm hypermetabolic pulmonary nodule in the right lower lobe and hypermetabolism in the stomach which of course may be related to her recent surgery. Additionally, an MRI of the brain was performed. This showed several intracranial lesions, the largest being 1.3 x 1.5 cm. There were multiple subcentimeter lesions as well. Patient is not able to give me any history. Patients oncologist consulted. Hypokalemia: Potassium yesterday 3.4 on IVF's with potassium replacement. Recheck is pending. Urinary retention: I+O cath this morning. May need catheter if does not improve today. DALIA: BUN 49 and Creat 1.05 yesterday. IVF infusing and labs are pending. Leukocytosis; WBC 12.4 and AMS. Will consult ID for recommendations. 09/13/17 AMS: Patient continues to AMS. 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 No evidence of acute infarct, hemorrhage or significant mass effect. IV steroids started. Per neurology note mental status change, probably encephalopathy versus effect of metastatic disease, rule out focal seizure. Hypokalemia: On IVF and oral replacement added today Hypernatremia; NA increased to 147mg/dl. IVF changed to D51/4 NS will recheck in AM Urinary retention: Becerra placed Leukocytosis: No source of infection noted however patient is very confused with mild leukocytosis. ID consulted. N. She has mental status change, probably encephalopathy versus effect of metastatic disease, rule out focal seizure. 09/14/17 Found in bed, no sign of distress. Seen by ID yesterday for leukocytosis. Per note no sign of infectious process likely reactive. VSS Has metastatic lung ca. Dr Lewis discussed with son last night, Hospice consulted. Likely DC to Hospice services. Romina Noel Sep 14, 2017 07:32
[2017-09-14 07:42] VITALS: PULSE 83
[2017-09-14 08:28] VITALS: BP 137/85; PULSE 83; RESP 22; TEMP 97.1; O2SAT 95
[2017-09-14] MEDS: SODIUM CHLORIDE 0.9% FLUSH 10 ML FLUSH IV FLUSH SCH (09:19)
[2017-09-14] MEDS: PANTOPRAZOLE SOD 40 MG DELAYED RELEASE TAB PO SCH (09:20)
[2017-09-14] MEDS: D5-1/4 NS + KCL 20 MEQ INJ 1,000 ML IV SCH (09:38)
[2017-09-14 11:51] VITALS: PULSE 91
[2017-09-14 13:03] VITALS: BP 138/94; PULSE 94; RESP 20; TEMP 97.2; O2SAT 95
--- NOTE | 2017-09-14 20:38 | HHI.DS ---
Discharge Summary Admission Date Sep 11, 2017 at 15:06 Discharge Date: Sep 14, 2017 Admitting Diagnosis AMS (1) Lung cancer ICD Codes: C34.90 - Malignant neoplasm of unspecified part of unspecified bronchus or lung (2) Metastatic lung cancer (metastasis from lung to other site) ICD Codes: C34.90 - Malignant neoplasm of unspecified part of unspecified bronchus or lung Brief History Admitted on 09/11/17 for AMS. CBC/BMP: 09/13/17 1134 09/13/17 1134 Significant Findings Laboratory Tests Test 09/12/17 06:37 09/13/17 11:34 White Blood Count 11.6 TH/MM3 (4.0-11.0) 12.2 TH/MM3 (4.0-11.0) Red Blood Count 3.98 MIL/MM3 (4.00-5.30) Neutrophils (%) (Auto) 88.4 % (16.0-70.0) 92.3 % (16.0-70.0) Lymphocytes (%) (Auto) 6.1 % (9.0-44.0) 3.9 % (9.0-44.0) Neutrophils # (Auto) 10.3 TH/MM3 (1.8-7.7) 11.3 TH/MM3 (1.8-7.7) Lymphocytes # (Auto) 0.7 TH/MM3 (1.0-4.8) 0.5 TH/MM3 (1.0-4.8) Blood Urea Nitrogen 32 MG/DL (7-18) 25 MG/DL (7-18) Random Glucose 60 MG/DL (74-106) 141 MG/DL (74-106) Total Protein 6.2 GM/DL (6.4-8.2) Albumin 2.8 GM/DL (3.4-5.0) Alkaline Phosphatase 297 U/L (45-117) Aspartate Amino Transf (AST/SGOT) 75 U/L (15-37) Alanine Aminotransferase (ALT/SGPT) 83 U/L (10-53) Total Bilirubin 1.1 MG/DL (0.2-1.0) Sodium Level 147 MEQ/L (136-145) Potassium Level 3.4 MEQ/L (3.5-5.1) Chloride Level 116 MEQ/L (98-107) 109 MEQ/L (98-107) Carbon Dioxide Level 20.1 MEQ/L (21.0-32.0) 15.8 MEQ/L (21.0-32.0) Estimat Glomerular Filtration Rate 81 ML/MIN (>89) Hospital Course Admitted on 09/11/17 for AMS after being found on floor. She has history of Non small cell lung ca with mets to brain. CT shows no acute abnormalities 09/12/17 Neuro consulted, MRI completed shows enhancing brain lesion, EEG abnormal showing encephalopathic process. 09/12/17Hematology/oncology consulted, patient with progressive stage 4 intra- axial enhancing lesion in brain with increased alk phos likely related to mets to bone. ID seen patient for leukocytosis determines no infectious process, likely leukocytosis reactive. After lengthy discussion with family patient d/c on 09/14/17 to Hospice services Care center Pt Condition on Discharge: Deteriorating Discharge Disposition: Hospice/Med Facility Discharge Instructions DIET: Follow Instructions for: As Tolerated, No Restrictions Speech Therapy-Diet Recommenda: Other Activities you can perform: Regular-No Restrictions Romina Noel Sep 14, 2017 20:38
== END 2017-09-14 15:53 | disposition hospice, inpatient (51) | DRG 54 ==
LOC: NEPC 10:47 → NEDA 15:06 → N04A 16:15
PROVIDERS: ADMIT Family Medicine; ATTEND Family Medicine
DX: C79.31 Secondary malignant neoplasm of brain (principal); G93.40 Encephalopathy, unspecified; N17.9 Acute kidney failure, unspecified; E87.0 Hyperosmolality and hypernatremia; R64 Cachexia; C78.7 Secondary malignant neoplasm of liver and intrahepatic bile duct; C79.51 Secondary malignant neoplasm of bone; C34.31 Malignant neoplasm of lower lobe, right bronchus or lung; Z68.1 Body mass index [BMI] 19.9 or less, adult; J44.9 Chronic obstructive pulmonary disease, unspecified; E86.0 Dehydration; R33.9 Retention of urine, unspecified; E87.6 Hypokalemia; R91.1 Solitary pulmonary nodule; M19.90 Unspecified osteoarthritis, unspecified site; D72.829 Elevated white blood cell count, unspecified; Z96.643 Presence of artificial hip joint, bilateral; Z87.891 Personal history of nicotine dependence; Z85.118 Personal history of other malignant neoplasm of bronchus and lung; Z92.3 Personal history of irradiation; Z92.21 Personal history of antineoplastic chemotherapy; Z91.81 History of falling; E07.9 Disorder of thyroid, unspecified
CPT/HCPCS: 70450; 70553; 71010; 80048; 80053; 81001; 82140; 82550; 83605; 84484; 85025; 85610; 85730; 93005; 95819; 96360; A9579; J1100; J3480; J7030